=== PATIENT | male | born 1940 | race Caucasian/White ===

== ENCOUNTER 2020-12-25 07:43 | Inpatient (IN) ==
[2020-12-25] MEDS ORDERED: ONDANSETRON 4 MG/2 ML VIAL IV STA (08:06)
[2020-12-25] MEDS ORDERED: SODIUM CHLORIDE 0.9% 1,000 ML IV STA ×3 (08:06→10:19)
[2020-12-25] MEDS ORDERED: PANTOPRAZOLE 40 MG VIAL IV STA (08:06)
[2020-12-25] MEDS ORDERED: PIPERACILLIN/TAZOBACTAM 3,375 MG in SODIUM CHLORIDE 0.9% 100 ML IV STA (08:06)
[2020-12-25 08:26] LABS: Basophils % 0.3 % (0.0-0.8); Eosinophils # 0.2 10*3/uL (0.0-0.87); Eosinophils % 1.2 % (0.00-10.9); Hematocrit 35.3 VOL% (42.0-52.0); Hemoglobin 11.1 GM/DL (14.0-18.0); Immature Granulocytes % 0.6 %; Immature Granulocytes Absolute 0.08 #; Lymphocytes # 0.5 10*3/uL (1.4-4.0); Lymphocytes % 4.2 % (21.2-54.2); Mean Corpuscular HGB Conc 31.4 GM/DL (32-36); Mean Corpuscular Volume 87.8 FL (87-102); Mean Platelet Volume 10.3 FL (9.6-12.0); Monocytes % 7.8 % (1.7-12.7); Neutrophils % 85.9 % (38.7-73.9); Platelet Count 247 T/CUMM (130-400); Red Blood Count 4.02 MC/CUMM (3.8-5.5); Red Cell Distribution Width 15.4 % (9.3-17.3)
[2020-12-25 08:49] LABS: PT Patient Result > 178.9 SECS (9.8-11.9)
[2020-12-25 08:51] LABS: INR 24.8
[2020-12-25] MEDS ORDERED: SODIUM CHLORIDE 0.9% 1,000 ML IV PRN (08:52)
[2020-12-25 08:53] LABS: Hypochromasia 1+; Lymphocytes 5 % (20-55); Microcytosis 1+; Platelet Estimate Adequate; Segmented Neutrophils 86 % (50-85); Total Cells Counted 100
[2020-12-25 09:03] LABS: Albumin 2.8 G/DL (3.4-5.0); Bilirubin,Total 0.6 MG/DL (0.2-1.0); Calcium 8.7 MG/DL (8.5-10.1); Osmolality,Calculated 293.4 MOS/KG (273-304); Total Protein 6.2 G/DL (5.0-7.5)
[2020-12-25] MEDS ORDERED: ETOMIDATE 40 MG/20 ML VIAL IV ONE ×2 (09:10→11:38)
[2020-12-25] MEDS ORDERED: LIDOCAINE 2% 5 ML VIAL ONE ×2 (09:10→11:38)
[2020-12-25] MEDS ORDERED: propofoL 200 MG/20 ML VIAL IV ONE ×2 (09:10→11:38)
[2020-12-25] MEDS ORDERED: ROCURONIUM 50 MG/5 ML VIAL IV ONE ×2 (09:10→11:38)
[2020-12-25] MEDS ORDERED: fentaNYL 100 MCG/2 ML VIAL ONE ×2 (09:10→11:39)
[2020-12-25] MEDS ORDERED: PROTHROMBIN COMPLEX IV ONE (09:30)
[2020-12-25] MEDS ORDERED: NOREPINEPHRINE 4 MG/4 ML VIAL IV ONE (09:48)
[2020-12-25] MEDS: NOREPINEPHRINE 8 MG in SODIUM CHLORIDE 0.9% 242 ML IV PRN (10:00)
[2020-12-25 10:09] LABS: Bilirubin,Urine Small mg/dL (Negative); Blood, Urine Moderate mg/dL (Negative); Glucose,Urine (UA) Negative (Negative); Hyaline Casts,Urine 26 /LPF (0-3); Ketones,Urine 5 mg/dL (Negative); Mucus,Urine Occasional /LPF (Occasional); Nitrite,Urine Negative (Negative); Protein,Urine Negative; RBC,Urine 26 /HPF (0-4); Squamous Epithelial Cell,Urine Occasional /HPF (0-10); Urine Appearance Slightly Hazy (Clear); Urine Color Amber (Yellow); WBC,Urine 18 /HPF (0-6)
[2020-12-25] MEDS ORDERED: MORPHINE 4 MG/1 ML VIAL IV PRN (10:19)
[2020-12-25] MEDS ORDERED: ONDANSETRON 4 MG/2 ML VIAL IV PRN (10:19)
[2020-12-25] MEDS ORDERED: LACTATED RINGERS 1,000 ML IV SCH (10:30)
[2020-12-25 11:16] LABS: INR 1.6; PT Patient Result 16.6 SECS (9.8-11.9)
[2020-12-25] MEDS ORDERED: SEVOFLURANE 1 UNIT/15 MINUTE INH ONE ×2 (11:50→13:17)
[2020-12-25] MEDS ORDERED: DEXAMETHASONE 4 MG/1 ML VIAL ONE (11:50)
[2020-12-25] MEDS ORDERED: PHENYLEPHRINE 1 MG/10 ML SYRINGE IV ONE ×2 (12:08→13:01)
[2020-12-25] MEDS ORDERED: PHENYLEPHRINE 10 MG/1 ML VIAL IV ONE (12:35)
[2020-12-25] MEDS ORDERED: SODIUM CHLORIDE 0.9% 250 ML IV ONE (12:36)
[2020-12-25] MEDS ORDERED: ONDANSETRON 4 MG/2 ML VIAL ONE (13:01)
[2020-12-25 14:03] LABS: ABG Base Excess -8.8 MMOL/L (-2.5-2.5); ABG HCO3 17.4 MMOL/L (20-26); ABG Oxygen Saturation 99.5 % (95-100); ABG PCO2 52.3 MM HG (35-48); ABG TCO2 18.3 MMOL/L (23-27); Pt O2 Delivery Device Ventilator
[2020-12-25] MEDS ORDERED: DIGOXIN 0.5 MG/2 ML AMP IV ONE ×2 (14:04→14:35)
[2020-12-25 14:06] LABS: ABG PH 7.187 (7.35-7.45)
[2020-12-25] MEDS ORDERED: PIPERACILLIN/TAZOBACTAM 3,375 MG in SODIUM CHLORIDE 0.9% 100 ML IV SCH (14:30)
[2020-12-25] MEDS: MIDAZOLAM 100 MG in SODIUM CHLORIDE 0.9% 80 ML IV PRN (14:47)
[2020-12-25 15:02] LABS: Basophils # 0.1 10*3/uL (0.0-0.2); Basophils % 0.4 % (0.0-0.8); Eosinophils # 0.1 10*3/uL (0.0-0.87); Eosinophils % 0.6 % (0.00-10.9); Hematocrit 34.5 VOL% (42.0-52.0); Hemoglobin 10.9 GM/DL (14.0-18.0); Immature Granulocytes % 0.6 %; Immature Granulocytes Absolute 0.07 #; Lymphocytes # 0.6 10*3/uL (1.4-4.0); Lymphocytes % 5.5 % (21.2-54.2); Mean Corpuscular HGB Conc 31.6 GM/DL (32-36); Mean Corpuscular Volume 89.1 FL (87-102); Mean Platelet Volume 10.1 FL (9.6-12.0); Monocytes % 4.4 % (1.7-12.7); Neutrophils % 88.5 % (38.7-73.9); Platelet Count 215 T/CUMM (130-400); Red Blood Count 3.87 MC/CUMM (3.8-5.5); Red Cell Distribution Width 15.5 % (9.3-17.3); White Blood Count 11.4 T/CUMM (4-12)
[2020-12-25 15:14] LABS: Calcium 7.7 MG/DL (8.5-10.1); Osmolality,Calculated 299.5 MOS/KG (273-304); Potassium 4.6 MMOL/L (3.5-5.1)
[2020-12-25] MEDS: SODIUM BICARB INJ 100 MEQ in DEXTROSE 5% 1,000 ML IV SCH ×2 (16:01→23:34)
[2020-12-25] MEDS ORDERED: AMIODARONE INJ 150 MG in DEXTROSE 5% 100 ML IV ONE (16:21)
[2020-12-25] MEDS: MORPHINE 4 MG/1 ML VIAL IV PRN (16:39)
[2020-12-25] MEDS: AMIODARONE INJ 450 MG in DEXTROSE 5% 241 ML IV SCH (17:08)
[2020-12-25] MEDS: PIPERACILLIN/TAZOBACTAM 3,375 MG in SODIUM CHLORIDE 0.9% 100 ML IV SCH (20:48)
[2020-12-26 03:47] LABS: ABG Base Excess 2.6 MMOL/L (-2.5-2.5); ABG HCO3 26.7 MMOL/L (20-26); ABG Oxygen Saturation 99.2 % (95-100); ABG PCO2 37.4 MM HG (35-48); ABG PH 7.457 (7.35-7.45); ABG TCO2 23.9 MMOL/L (23-27)
[2020-12-26 05:03] LABS: Basophils % 0.2 % (0.0-0.8); Eosinophils % 0.1 % (0.00-10.9); Hematocrit 30.1 VOL% (42.0-52.0); Hemoglobin 9.9 GM/DL (14.0-18.0); Immature Granulocytes % 0.7 %; Immature Granulocytes Absolute 0.07 #; Lymphocytes # 0.3 10*3/uL (1.4-4.0); Lymphocytes % 2.6 % (21.2-54.2); Mean Corpuscular HGB Conc 32.9 GM/DL (32-36); Mean Corpuscular Volume 84.8 FL (87-102); Mean Platelet Volume 9.8 FL (9.6-12.0); Monocytes % 6.8 % (1.7-12.7); Neutrophils % 89.6 % (38.7-73.9); Platelet Count 196 T/CUMM (130-400); Red Blood Count 3.55 MC/CUMM (3.8-5.5); Red Cell Distribution Width 15.3 % (9.3-17.3); White Blood Count 9.9 T/CUMM (4-12)
[2020-12-26 05:20] LABS: Albumin 2.1 G/DL (3.4-5.0); Bilirubin,Total 0.5 MG/DL (0.2-1.0); Calcium 7.7 MG/DL (8.5-10.1); Osmolality,Calculated 294.8 MOS/KG (273-304); Potassium 3.9 MMOL/L (3.5-5.1); Total Protein 5.4 G/DL (5.0-7.5)
[2020-12-26 05:23] LABS: Hypochromasia Slight; Lymphocytes 4 % (20-55); Microcytosis Slight; Platelet Estimate Normal; Segmented Neutrophils 91 % (50-85); Total Cells Counted 100
[2020-12-26 05:24] LABS: PT Patient Result 51.8 SECS (9.8-11.9)
[2020-12-26 05:26] LABS: INR 5.3
[2020-12-26] MEDS: MORPHINE 4 MG/1 ML VIAL IV PRN ×3 (06:12→21:20)
[2020-12-26] MEDS: SODIUM BICARB INJ 100 MEQ in DEXTROSE 5% 1,000 ML IV SCH (07:39)
[2020-12-26] MEDS ORDERED: SODIUM CHLORIDE 0.9% 1,000 ML IV PRN (07:54)
[2020-12-26] MEDS: AMIODARONE INJ 450 MG in DEXTROSE 5% 241 ML IV SCH ×2 (08:30→20:30)
[2020-12-26] MEDS: PANTOPRAZOLE 40 MG VIAL IV SCH (08:31)
[2020-12-26] MEDS: PIPERACILLIN/TAZOBACTAM 3,375 MG in SODIUM CHLORIDE 0.9% 100 ML IV SCH ×2 (08:31→20:06)
[2020-12-26] MEDS ORDERED: GLUCAGON 1 MG VIAL IM PRN (08:58)
[2020-12-26] MEDS ORDERED: DEXTROSE 50% 25 GM/50 ML VIAL IV PRN (08:58)
[2020-12-26] MEDS ORDERED: PANTOPRAZOLE 40 MG TABLET PO SCH (09:00)
[2020-12-26] MEDS: SODIUM BICARB INJ 50 MEQ in DEXTROSE 5% NACL 0.45% 1,000 ML IV SCH ×2 (10:05→20:22)
[2020-12-26] MEDS ORDERED: AMIODARONE INJ 450 MG in DEXTROSE 5% 241 ML IV SCH (11:30)
[2020-12-26] MEDS: INSULIN LISPRO 100 UNIT/ML SUBCUT SCH ×3 (12:31→23:24)
[2020-12-26] MEDS: MIDAZOLAM 100 MG in SODIUM CHLORIDE 0.9% 80 ML IV PRN (15:32)
[2020-12-26] MEDS: POTASSIUM CHLORIDE RIDER 10 MEQ in PREMIX 1 EACH IV PRN ×2 (15:36→16:45)
[2020-12-27 03:24] LABS: ABG Base Excess 7.7 MMOL/L (-2.5-2.5); ABG HCO3 31.5 MMOL/L (20-26); ABG Oxygen Saturation 98.7 % (95-100); ABG PCO2 43.2 MM HG (35-48); ABG PH 7.478 (7.35-7.45); ABG TCO2 29.4 MMOL/L (23-27); Allen Test Positive; Pt O2 Delivery Device Ventilator
[2020-12-27 04:01] LABS: Eosinophils # 0.1 10*3/uL (0.0-0.87); Eosinophils % 1.3 % (0.00-10.9); Hematocrit 27.5 VOL% (42.0-52.0); Hemoglobin 8.7 GM/DL (14.0-18.0); Immature Granulocytes % 0.9 %; Immature Granulocytes Absolute 0.05 #; Lymphocytes # 0.3 10*3/uL (1.4-4.0); Lymphocytes % 5.4 % (21.2-54.2); Mean Corpuscular HGB Conc 31.6 GM/DL (32-36); Mean Corpuscular Volume 87.9 FL (87-102); Mean Platelet Volume 9.8 FL (9.6-12.0); Monocytes % 8.8 % (1.7-12.7); Neutrophils % 83.6 % (38.7-73.9); Red Blood Count 3.13 MC/CUMM (3.8-5.5); Red Cell Distribution Width 15.3 % (9.3-17.3)
[2020-12-27 04:02] LABS: Platelet Count 152 T/CUMM (130-400); White Blood Count 5.3 T/CUMM (4-12)
[2020-12-27 04:08] LABS: INR 4.5; PT Patient Result 44.7 SECS (9.8-11.9)
[2020-12-27 04:16] LABS: Bilirubin,Total 0.5 MG/DL (0.2-1.0); Calcium 7.7 MG/DL (8.5-10.1); Osmolality,Calculated 291.4 MOS/KG (273-304); Potassium 3.5 MMOL/L (3.5-5.1); Total Protein 5.4 G/DL (5.0-7.5)
[2020-12-27] MEDS: POTASSIUM CHLORIDE RIDER 20 MEQ in PREMIX 1 EACH IV PRN (05:11)
[2020-12-27] MEDS: INSULIN LISPRO 100 UNIT/ML SUBCUT SCH ×3 (06:07→18:06)
[2020-12-27] MEDS: SODIUM BICARB INJ 50 MEQ in DEXTROSE 5% NACL 0.45% 1,000 ML IV SCH ×3 (06:07→16:46)
[2020-12-27] MEDS: POTASSIUM CHLORIDE RIDER 10 MEQ in PREMIX 1 EACH IV PRN (06:08)
[2020-12-27] MEDS: MORPHINE 4 MG/1 ML VIAL IV PRN ×2 (06:15→12:11)
[2020-12-27] MEDS: PIPERACILLIN/TAZOBACTAM 3,375 MG in SODIUM CHLORIDE 0.9% 100 ML IV SCH ×2 (09:09→20:28)
[2020-12-27] MEDS: AMIODARONE INJ 450 MG in DEXTROSE 5% 241 ML IV SCH ×2 (09:09→12:10)
[2020-12-27] MEDS: PANTOPRAZOLE 40 MG VIAL IV SCH (09:10)
[2020-12-27] MEDS ORDERED: LIDOCAINE 2% 5 ML VIAL ONE (10:07)
[2020-12-27] MEDS ORDERED: ROCURONIUM 50 MG/5 ML VIAL IV ONE ×2 (10:07→10:59)
[2020-12-27] MEDS ORDERED: DEXAMETHASONE 4 MG/1 ML VIAL ONE (10:07)
[2020-12-27] MEDS ORDERED: MIDAZOLAM 2 MG/2 ML VIAL ONE ×2 (10:07)
[2020-12-27] MEDS ORDERED: ETOMIDATE 40 MG/20 ML VIAL IV ONE (10:07)
[2020-12-27] MEDS ORDERED: MINERAL OIL/PETROLATUM OPH OINT 3.5 GM TUBE ONE (10:33)
[2020-12-27] MEDS ORDERED: SEVOFLURANE 1 UNIT/15 MINUTE INH ONE ×2 (10:40→10:59)
[2020-12-27] MEDS ORDERED: PHENYLEPHRINE 1 MG/10 ML SYRINGE IV ONE ×2 (10:40→10:59)
[2020-12-27] MEDS ORDERED: ONDANSETRON 4 MG/2 ML VIAL ONE (10:43)
[2020-12-27] MEDS ORDERED: fentaNYL 100 MCG/2 ML VIAL ONE (10:57)
[2020-12-27] MEDS ORDERED: DILTIAZEM 50 MG/10 ML VIAL IV ONE (12:36)
[2020-12-27] MEDS ORDERED: DILTIAZEM 25 MG/5 ML VIAL IV ONE (12:38)
[2020-12-27] MEDS: DILTIAZEM INJ 100 MG in SODIUM CHLORIDE 0.9% 100 ML IV SCH ×2 (12:44→19:23)
[2020-12-27 15:46] LABS: INR 2.9
[2020-12-27 15:47] LABS: PT Patient Result 29.1 SECS (9.8-11.9)
[2020-12-27] MEDS: ACETAMINOPHEN 325 MG TABLET PO PRN (20:27)
[2020-12-28] MEDS: INSULIN LISPRO 100 UNIT/ML SUBCUT SCH ×5 (01:56→23:40)
[2020-12-28] MEDS: SODIUM BICARB INJ 50 MEQ in DEXTROSE 5% NACL 0.45% 1,000 ML IV SCH (04:22)
[2020-12-28 04:37] LABS: Allen Test Positive; Pt O2 Delivery Device Ventilator
[2020-12-28 04:38] LABS: ABG Base Excess 6.1 MMOL/L (-2.5-2.5); ABG HCO3 29.3 MMOL/L (20-26); ABG PCO2 37.4 MM HG (35-48); ABG PH 7.512 (7.35-7.45); ABG PO2 108.9 MM HG (80-95); ABG TCO2 30.5 MMOL/L (23-27)
[2020-12-28 04:41] LABS: ABG Oxygen Saturation 98.4 % (95-100)
[2020-12-28 05:04] LABS: Basophils % 0.2 % (0.0-0.8); Eosinophils % 0.8 % (0.00-10.9); Hematocrit 30.3 VOL% (42.0-52.0); Hemoglobin 9.4 GM/DL (14.0-18.0); Immature Granulocytes % 1.8 %; Lymphocytes # 0.5 10*3/uL (1.4-4.0); Lymphocytes % 4.5 % (21.2-54.2); Mean Corpuscular Volume 89.6 FL (87-102); Mean Platelet Volume 9.6 FL (9.6-12.0); Monocytes % 8.6 % (1.7-12.7); Neutrophils % 84.1 % (38.7-73.9); Platelet Count 187 T/CUMM (130-400); Red Blood Count 3.38 MC/CUMM (3.8-5.5); Red Cell Distribution Width 15.3 % (9.3-17.3); White Blood Count 10.8 T/CUMM (4-12)
[2020-12-28] MEDS: MORPHINE 4 MG/1 ML VIAL IV PRN ×2 (05:04→09:24)
[2020-12-28 05:05] LABS: Eosinophils # 0.1 10*3/uL (0.0-0.87); Immature Granulocytes Absolute 0.19 #
[2020-12-28 05:26] LABS: Band Neutrophils 1 % (0-10); Eosinophils 1 % (0-10); Hypochromasia 1+; Lymphocytes 1 % (20-55); PT Patient Result 55.5 SECS (9.8-11.9); Segmented Neutrophils 91 % (50-85); Total Cells Counted 100
[2020-12-28 05:27] LABS: Microcytosis 1+; Ovalocytes Slight
[2020-12-28 05:41] LABS: Calcium 7.9 MG/DL (8.5-10.1); Osmolality,Calculated 284.7 MOS/KG (273-304); Potassium 3.7 MMOL/L (3.5-5.1)
[2020-12-28 06:10] LABS: INR 5.7
[2020-12-28] MEDS: POTASSIUM CHLORIDE RIDER 20 MEQ in PREMIX 1 EACH IV PRN (06:31)
[2020-12-28] MEDS ORDERED: PHYTONADIONE 10 MG/1 ML AMP SUBCUT ONE (07:33)
[2020-12-28] MEDS ORDERED: POTASSIUM CHLORIDE RIDER 20 MEQ in PREMIX 1 EACH IV PRN (07:46)
[2020-12-28] MEDS ORDERED: POTASSIUM CHLORIDE RIDER 10 MEQ in PREMIX 1 EACH IV PRN (07:46)
[2020-12-28] MEDS: PANTOPRAZOLE 40 MG VIAL IV SCH (09:21)
[2020-12-28] MEDS: PIPERACILLIN/TAZOBACTAM 3,375 MG in SODIUM CHLORIDE 0.9% 100 ML IV SCH (09:23)
[2020-12-28] MEDS: NOREPINEPHRINE 8 MG in SODIUM CHLORIDE 0.9% 242 ML IV PRN (11:34)
[2020-12-28] MEDS: DILTIAZEM INJ 100 MG in SODIUM CHLORIDE 0.9% 100 ML IV SCH ×2 (11:39→12:13)
[2020-12-28] MEDS: DEXTROSE 5% NACL 0.9% 1,000 ML IV SCH ×2 (12:00→22:04)
[2020-12-28] MEDS: ERTAPENEM 1,000 MG in SODIUM CHLORIDE 0.9% 100 ML IV SCH (13:49)
[2020-12-28] MEDS: MIDAZOLAM 100 MG in SODIUM CHLORIDE 0.9% 80 ML IV PRN (21:03)
[2020-12-29 04:24] LABS: ABG Base Excess 5.5 MMOL/L (-2.5-2.5); ABG HCO3 29.6 MMOL/L (20-26); ABG PCO2 41.2 MM HG (35-48); ABG PH 7.474 (7.35-7.45); ABG PO2 109.1 MM HG (80-95); ABG TCO2 30.8 MMOL/L (23-27); Allen Test Positive; Pt O2 Delivery Device Ventilator
[2020-12-29 05:03] LABS: Basophils % 0.3 % (0.0-0.8); Eosinophils # 0.2 10*3/uL (0.0-0.87); Eosinophils % 1.6 % (0.00-10.9); Hematocrit 27.1 VOL% (42.0-52.0); Hemoglobin 8.4 GM/DL (14.0-18.0); Immature Granulocytes Absolute 0.09 #; Lymphocytes # 0.4 10*3/uL (1.4-4.0); Lymphocytes % 4.8 % (21.2-54.2); Mean Corpuscular Volume 90.3 FL (87-102); Mean Platelet Volume 9.5 FL (9.6-12.0); Monocytes % 8.1 % (1.7-12.7); Neutrophils % 84.2 % (38.7-73.9); Platelet Count 157 T/CUMM (130-400); Red Cell Distribution Width 15.1 % (9.3-17.3); White Blood Count 9.2 T/CUMM (4-12)
[2020-12-29 05:21] LABS: Osmolality,Calculated 287.4 MOS/KG (273-304); Potassium 3.4 MMOL/L (3.5-5.1)
[2020-12-29 05:28] LABS: INR 1.5; PT Patient Result 15.8 SECS (9.8-11.9)
[2020-12-29 05:29] LABS: Band Neutrophils 1 % (0-10); Eosinophils 4 % (0-10); Hypochromasia 1+; Lymphocytes 4 % (20-55); Microcytosis 1+; Segmented Neutrophils 81 % (50-85); Total Cells Counted 100
[2020-12-29 05:30] LABS: Giant Platelets Few; Ovalocytes Slight
[2020-12-29] MEDS: INSULIN LISPRO 100 UNIT/ML SUBCUT SCH ×3 (05:37→18:00)
[2020-12-29] MEDS: POTASSIUM CHLORIDE RIDER 20 MEQ in PREMIX 1 EACH IV PRN (05:45)
[2020-12-29] MEDS: DILTIAZEM INJ 100 MG in SODIUM CHLORIDE 0.9% 100 ML IV SCH ×2 (05:50→13:00)
[2020-12-29] MEDS: POTASSIUM CHLORIDE RIDER 10 MEQ in PREMIX 1 EACH IV PRN (07:40)
[2020-12-29] MEDS: DEXTROSE 5% NACL 0.9% 1,000 ML IV SCH ×2 (08:05→17:45)
[2020-12-29] MEDS: PANTOPRAZOLE 40 MG VIAL IV SCH (08:10)
[2020-12-29] MEDS: MORPHINE 4 MG/1 ML VIAL IV PRN ×3 (09:05→21:45)
[2020-12-29] MEDS: WARFARIN 5 MG TABLET PO SCH (10:10)
[2020-12-29] MEDS: ERTAPENEM 1,000 MG in SODIUM CHLORIDE 0.9% 100 ML IV SCH (11:50)
[2020-12-29] MEDS: DILTIAZEM 30 MG TABLET PO SCH ×2 (12:30→17:50)
[2020-12-29] MEDS: ROSUVASTATIN 10 MG TABLET PO SCH (21:09)
[2020-12-30] MEDS: INSULIN LISPRO 100 UNIT/ML SUBCUT SCH ×6 (00:48→23:47)
[2020-12-30] MEDS: DILTIAZEM 30 MG TABLET PO SCH ×5 (00:59→23:52)
[2020-12-30 03:43] LABS: ABG Base Excess 4.7 MMOL/L (-2.5-2.5); ABG HCO3 28.6 MMOL/L (20-26); ABG Oxygen Saturation 98.1 % (95-100); ABG PCO2 44.7 MM HG (35-48); ABG PH 7.428 (7.35-7.45); ABG TCO2 27.3 MMOL/L (23-27)
[2020-12-30] MEDS: DEXTROSE 5% NACL 0.9% 1,000 ML IV SCH ×2 (03:53→14:00)
[2020-12-30] MEDS: MORPHINE 4 MG/1 ML VIAL IV PRN ×3 (05:56→21:36)
[2020-12-30 06:00] LABS: Basophils % 0.2 % (0.0-0.8); Eosinophils # 0.2 10*3/uL (0.0-0.87); Eosinophils % 2.3 % (0.00-10.9); Hematocrit 27.7 VOL% (42.0-52.0); Hemoglobin 8.2 GM/DL (14.0-18.0); Immature Granulocytes % 1.1 %; Immature Granulocytes Absolute 0.09 #; Lymphocytes # 0.4 10*3/uL (1.4-4.0); Lymphocytes % 4.4 % (21.2-54.2); Mean Corpuscular HGB Conc 29.6 GM/DL (32-36); Mean Corpuscular Volume 94.2 FL (87-102); Mean Platelet Volume 9.6 FL (9.6-12.0); Platelet Count 149 T/CUMM (130-400); Red Blood Count 2.94 MC/CUMM (3.8-5.5); Red Cell Distribution Width 14.9 % (9.3-17.3); White Blood Count 8.2 T/CUMM (4-12)
[2020-12-30 06:12] LABS: INR 1.2
[2020-12-30 06:18] LABS: Calcium 8.1 MG/DL (8.5-10.1); Osmolality,Calculated 291.8 MOS/KG (273-304); Potassium 3.4 MMOL/L (3.5-5.1)
[2020-12-30 06:25] LABS: Band Neutrophils 1 % (0-10); Eosinophils 2 % (0-10); Hypochromasia 2+; Lymphocytes 3 % (20-55); Microcytosis 1+; Platelet Estimate Adequate; Segmented Neutrophils 89 % (50-85); Total Cells Counted 100
[2020-12-30] MEDS: POTASSIUM CHLORIDE RIDER 20 MEQ in PREMIX 1 EACH IV PRN (06:26)
[2020-12-30] MEDS ORDERED: MAGNESIUM SULF RIDER 2 GM in PREMIX 1 EACH IV ONE (08:00)
[2020-12-30] MEDS: PANTOPRAZOLE 40 MG VIAL IV SCH (08:15)
[2020-12-30] MEDS: POTASSIUM CHLORIDE RIDER 10 MEQ in PREMIX 1 EACH IV PRN (08:30)
[2020-12-30] MEDS: WARFARIN 7.5 MG TABLET PO SCH (08:40)
[2020-12-30] MEDS: ENOXAPARIN 100 MG/ML SYRINGE SUBCUT SCH ×2 (10:05→21:36)
[2020-12-30] MEDS: ERTAPENEM 1,000 MG in SODIUM CHLORIDE 0.9% 100 ML IV SCH (11:45)
[2020-12-30] MEDS ORDERED: INSULIN LISPRO 100 UNIT/ML SUBCUT SCH (19:30)
[2020-12-30] MEDS: ROSUVASTATIN 10 MG TABLET PO SCH (21:36)
[2020-12-31 03:10] LABS: ABG Base Excess 4.5 MMOL/L (-2.5-2.5); ABG HCO3 29.1 MMOL/L (20-26); ABG Oxygen Saturation 97.3 % (95-100); ABG PCO2 43.9 MM HG (35-48); ABG PO2 94.5 MM HG (80-95); ABG TCO2 30.5 MMOL/L (23-27)
[2020-12-31] MEDS: MORPHINE 4 MG/1 ML VIAL IV PRN ×3 (03:58→14:20)
[2020-12-31 04:56] LABS: Basophils % 0.4 % (0.0-0.8); Eosinophils # 0.2 10*3/uL (0.0-0.87); Eosinophils % 2.9 % (0.00-10.9); Hematocrit 26.2 VOL% (42.0-52.0); Immature Granulocytes % 1.2 %; Immature Granulocytes Absolute 0.09 #; Lymphocytes # 0.5 10*3/uL (1.4-4.0); Mean Corpuscular HGB Conc 30.5 GM/DL (32-36); Mean Corpuscular Volume 91.3 FL (87-102); Mean Platelet Volume 10.2 FL (9.6-12.0); Monocytes % 6.4 % (1.7-12.7); Neutrophils % 82.1 % (38.7-73.9); Platelet Count 153 T/CUMM (130-400); Red Blood Count 2.87 MC/CUMM (3.8-5.5); Red Cell Distribution Width 14.7 % (9.3-17.3); White Blood Count 7.5 T/CUMM (4-12)
[2020-12-31 05:14] LABS: Calcium 8.3 MG/DL (8.5-10.1); Osmolality,Calculated 283.3 MOS/KG (273-304); Potassium 3.6 MMOL/L (3.5-5.1)
[2020-12-31] MEDS: INSULIN LISPRO 100 UNIT/ML SUBCUT SCH ×3 (05:42→17:13)
[2020-12-31 05:49] LABS: INR 1.4; PT Patient Result 15.2 SECS (9.8-11.9)
[2020-12-31] MEDS: DILTIAZEM 30 MG TABLET PO SCH ×3 (05:52→18:10)
[2020-12-31] MEDS: ENOXAPARIN 100 MG/ML SYRINGE SUBCUT SCH ×2 (09:03→22:05)
[2020-12-31] MEDS: PANTOPRAZOLE 40 MG VIAL IV SCH (09:03)
[2020-12-31] MEDS: WARFARIN 5 MG TABLET PO SCH (09:04)
[2020-12-31] MEDS ORDERED: WARFARIN 2 MG TABLET PO ONE (09:06)
[2020-12-31] MEDS: ERTAPENEM 1,000 MG in SODIUM CHLORIDE 0.9% 100 ML IV SCH (12:06)
[2020-12-31] MEDS: ROSUVASTATIN 10 MG TABLET PO SCH (20:41)
[2021-01-01] MEDS: DILTIAZEM 30 MG TABLET PO SCH ×4 (00:22→18:10)
[2021-01-01] MEDS: ACETAMINOPHEN 325 MG TABLET PO PRN (00:29)
[2021-01-01] MEDS: INSULIN LISPRO 100 UNIT/ML SUBCUT SCH ×4 (00:29→19:19)
[2021-01-01 05:13] LABS: ABG Base Excess 4.3 MMOL/L (-2.5-2.5); ABG HCO3 28.2 MMOL/L (20-26); ABG Oxygen Saturation 96.5 % (95-100); ABG PCO2 45.7 MM HG (35-48); ABG PH 7.415 (7.35-7.45); ABG TCO2 27.2 MMOL/L (23-27)
[2021-01-01 05:32] LABS: Osmolality,Calculated 290.1 MOS/KG (273-304); Potassium 3.8 MMOL/L (3.5-5.1)
[2021-01-01 05:48] LABS: Basophils % 0.3 % (0.0-0.8); Eosinophils # 0.1 10*3/uL (0.0-0.87); Eosinophils % 2.3 % (0.00-10.9); Hematocrit 23.1 VOL% (42.0-52.0); Hemoglobin 6.8 GM/DL (14.0-18.0); Immature Granulocytes % 1.5 %; Immature Granulocytes Absolute 0.09 #; Lymphocytes # 0.5 10*3/uL (1.4-4.0); Lymphocytes % 7.6 % (21.2-54.2); Mean Corpuscular HGB Conc 29.4 GM/DL (32-36); Mean Corpuscular Volume 94.7 FL (87-102); Mean Platelet Volume 10.4 FL (9.6-12.0); Monocytes % 7.6 % (1.7-12.7); Neutrophils % 80.7 % (38.7-73.9); Platelet Count 159 T/CUMM (130-400); Red Blood Count 2.44 MC/CUMM (3.8-5.5); Red Cell Distribution Width 14.6 % (9.3-17.3); White Blood Count 6.2 T/CUMM (4-12)
[2021-01-01 07:11] LABS: PT Patient Result 20.4 SECS (9.8-11.9)
[2021-01-01 07:22] LABS: Basophils % 0.3 % (0.0-0.8); Eosinophils # 0.1 10*3/uL (0.0-0.87); Eosinophils % 2.2 % (0.00-10.9); Hematocrit 25.3 VOL% (42.0-52.0); Hemoglobin 7.8 GM/DL (14.0-18.0); Immature Granulocytes % 1.1 %; Immature Granulocytes Absolute 0.07 #; Lymphocytes # 0.5 10*3/uL (1.4-4.0); Lymphocytes % 7.4 % (21.2-54.2); Mean Corpuscular HGB Conc 30.8 GM/DL (32-36); Mean Corpuscular Volume 91.7 FL (87-102); Mean Platelet Volume 9.8 FL (9.6-12.0); Monocytes % 7.6 % (1.7-12.7); Neutrophils % 81.4 % (38.7-73.9); Platelet Count 158 T/CUMM (130-400); Red Blood Count 2.76 MC/CUMM (3.8-5.5); Red Cell Distribution Width 14.6 % (9.3-17.3); White Blood Count 6.5 T/CUMM (4-12)
[2021-01-01] MEDS: PANTOPRAZOLE 40 MG VIAL IV SCH (09:44)
[2021-01-01] MEDS: ENOXAPARIN 100 MG/ML SYRINGE SUBCUT SCH (09:45)
[2021-01-01] MEDS: WARFARIN 7.5 MG TABLET PO SCH (10:08)
[2021-01-01] MEDS: MORPHINE 4 MG/1 ML VIAL IV PRN (10:23)
[2021-01-01] MEDS: FUROSEMIDE 40 MG/4 ML VIAL IV SCH (10:47)
[2021-01-01] MEDS: ERTAPENEM 1,000 MG in SODIUM CHLORIDE 0.9% 100 ML IV SCH (11:54)
[2021-01-01] MEDS: MIDAZOLAM 100 MG in SODIUM CHLORIDE 0.9% 80 ML IV PRN (11:59)
[2021-01-01] MEDS ORDERED: HALOPERIDOL 5 MG/ML AMP IV PRN (14:04)
[2021-01-01] MEDS ORDERED: SODIUM CHLORIDE 0.9% 1,000 ML IV PRN (16:26)
[2021-01-01] MEDS: IPRATROPIUM 500 MCG/2.5 ML NEB RESP TX SCH (19:30)
[2021-01-01] MEDS: BUDESONIDE 0.5 MG/2 ML NEB RESP TX SCH (19:30)
[2021-01-01] MEDS: ROSUVASTATIN 10 MG TABLET PO SCH (21:14)
[2021-01-02] MEDS: DILTIAZEM 30 MG TABLET PO SCH ×4 (01:02→17:03)
[2021-01-02] MEDS: INSULIN LISPRO 100 UNIT/ML SUBCUT SCH ×4 (01:02→17:03)
[2021-01-02] MEDS: IPRATROPIUM 500 MCG/2.5 ML NEB RESP TX SCH ×4 (03:30→19:16)
[2021-01-02 04:29] LABS: ABG Base Excess 6.3 MMOL/L (-2.5-2.5); ABG HCO3 30.2 MMOL/L (20-26); ABG Oxygen Saturation 99.1 % (95-100); ABG PCO2 42.9 MM HG (35-48); ABG PH 7.463 (7.35-7.45); ABG TCO2 28.3 MMOL/L (23-27); Allen Test Positive; Pt O2 Delivery Device Ventilator
[2021-01-02 04:51] LABS: Hemoglobin 8.5 GM/DL (14.0-18.0); Immature Granulocytes % 1.3 %; Immature Granulocytes Absolute 0.09 #
[2021-01-02 05:00] LABS: Calcium 8.4 MG/DL (8.5-10.1); Osmolality,Calculated 285.5 MOS/KG (273-304); Potassium 3.6 MMOL/L (3.5-5.1)
[2021-01-02 05:03] LABS: INR 2.3
[2021-01-02 05:06] LABS: PT Patient Result 23.9 SECS (9.8-11.9)
[2021-01-02 05:08] LABS: Basophils % 0.1 % (0.0-0.8); Eosinophils # 0.1 10*3/uL (0.0-0.87); Eosinophils % 1.5 % (0.00-10.9); Hematocrit 26.8 VOL% (42.0-52.0); Lymphocytes # 0.4 10*3/uL (1.4-4.0); Lymphocytes % 6.2 % (21.2-54.2); Mean Corpuscular HGB Conc 31.7 GM/DL (32-36); Mean Platelet Volume 10.1 FL (9.6-12.0); Monocytes % 6.7 % (1.7-12.7); Neutrophils % 84.2 % (38.7-73.9); Platelet Count 163 T/CUMM (130-400); Red Blood Count 3.01 MC/CUMM (3.8-5.5); Red Cell Distribution Width 14.4 % (9.3-17.3); White Blood Count 7.1 T/CUMM (4-12)
[2021-01-02] MEDS: POTASSIUM CHLORIDE RIDER 20 MEQ in PREMIX 1 EACH IV PRN (06:31)
[2021-01-02] MEDS: BUDESONIDE 0.5 MG/2 ML NEB RESP TX SCH ×2 (07:16→19:16)
[2021-01-02] MEDS: FUROSEMIDE 40 MG/4 ML VIAL IV SCH ×2 (08:40→17:08)
[2021-01-02] MEDS: PANTOPRAZOLE 40 MG VIAL IV SCH (08:41)
[2021-01-02] MEDS: WARFARIN 5 MG TABLET PO SCH (08:41)
[2021-01-02] MEDS: MORPHINE 4 MG/1 ML VIAL IV PRN (09:51)
[2021-01-02] MEDS: DEXMEDETOMIDINE 400 MCG in SODIUM CHLORIDE 0.9% 96 ML IV PRN (11:04)
[2021-01-02] MEDS: ERTAPENEM 1,000 MG in SODIUM CHLORIDE 0.9% 100 ML IV SCH (12:53)
[2021-01-02] MEDS: ROSUVASTATIN 10 MG TABLET PO SCH (20:17)
[2021-01-03] MEDS: DILTIAZEM 30 MG TABLET PO SCH ×4 (00:16→17:55)
[2021-01-03] MEDS: DEXMEDETOMIDINE 400 MCG in SODIUM CHLORIDE 0.9% 96 ML IV PRN (00:17)
[2021-01-03] MEDS: INSULIN LISPRO 100 UNIT/ML SUBCUT SCH ×4 (00:38→17:30)
[2021-01-03] MEDS: IPRATROPIUM 500 MCG/2.5 ML NEB RESP TX SCH ×4 (01:15→19:28)
[2021-01-03 04:55] LABS: ABG Base Excess 8.5 MMOL/L (-2.5-2.5); ABG HCO3 32.2 MMOL/L (20-26); ABG Oxygen Saturation 98.2 % (95-100); ABG PH 7.482 (7.35-7.45); ABG TCO2 29.6 MMOL/L (23-27)
[2021-01-03 05:21] LABS: Basophils % 0.3 % (0.0-0.8); Eosinophils # 0.1 10*3/uL (0.0-0.87); Eosinophils % 1.5 % (0.00-10.9); Hematocrit 30.4 VOL% (42.0-52.0); Hemoglobin 9.2 GM/DL (14.0-18.0); Immature Granulocytes % 1.5 %; Immature Granulocytes Absolute 0.11 #; Lymphocytes # 0.5 10*3/uL (1.4-4.0); Lymphocytes % 6.7 % (21.2-54.2); Mean Corpuscular HGB Conc 30.3 GM/DL (32-36); Mean Corpuscular Volume 91.6 FL (87-102); Mean Platelet Volume 9.9 FL (9.6-12.0); Monocytes % 7.6 % (1.7-12.7); Neutrophils % 82.4 % (38.7-73.9); Platelet Count 207 T/CUMM (130-400); Red Blood Count 3.32 MC/CUMM (3.8-5.5); White Blood Count 7.2 T/CUMM (4-12)
[2021-01-03 05:37] LABS: INR 2.4
[2021-01-03 05:42] LABS: PT Patient Result 25.1 SECS (9.8-11.9)
[2021-01-03 05:46] LABS: Calcium 8.6 MG/DL (8.5-10.1); Osmolality,Calculated 281.8 MOS/KG (273-304); Potassium 3.7 MMOL/L (3.5-5.1)
[2021-01-03] MEDS: MORPHINE 4 MG/1 ML VIAL IV PRN (06:30)
[2021-01-03] MEDS: BUDESONIDE 0.5 MG/2 ML NEB RESP TX SCH ×2 (07:03→19:28)
[2021-01-03] MEDS: PANTOPRAZOLE 40 MG VIAL IV SCH (08:35)
[2021-01-03] MEDS: FUROSEMIDE 40 MG/4 ML VIAL IV SCH ×2 (08:35→16:38)
[2021-01-03] MEDS ORDERED: MAGNESIUM SULF RIDER 4 GM in PREMIX 1 EACH IV ONE (08:46)
[2021-01-03] MEDS ORDERED: ALPRAZolam 0.25 MG TABLET PO PRN (09:58)
[2021-01-03] MEDS: ALPRAZolam 0.25 MG TABLET PO SCH ×2 (10:30→17:53)
[2021-01-03] MEDS: AMIKACIN IV SCH (12:20)
[2021-01-03] MEDS: SODIUM CHLORIDE 0.9% IV SCH (12:20)
[2021-01-03 12:30] LABS: ABG Base Excess 8.9 MMOL/L (-2.5-2.5); ABG HCO3 32.7 MMOL/L (20-26); ABG PCO2 47.6 MM HG (35-48); ABG PH 7.461 (7.35-7.45); ABG PO2 79.5 MM HG (80-95); ABG TCO2 30.9 MMOL/L (23-27)
[2021-01-03] MEDS: ERTAPENEM 1,000 MG in SODIUM CHLORIDE 0.9% 100 ML IV SCH (12:45)
[2021-01-03] MEDS ORDERED: METOPROLOL TARTRATE 50 MG TABLET PO SCH (17:06)
[2021-01-03] MEDS: WARFARIN 5 MG TABLET PO SCH (17:55)
[2021-01-03] MEDS ORDERED: METOPROLOL TARTRATE 5 MG/5 ML VIAL IV ONE (18:00)
[2021-01-03] MEDS: ROSUVASTATIN 10 MG TABLET PO SCH (21:16)
[2021-01-03] MEDS: METOPROLOL TARTRATE 50 MG TABLET PO SCH (21:17)
[2021-01-04] MEDS: INSULIN LISPRO 100 UNIT/ML SUBCUT SCH ×4 (00:54→18:12)
[2021-01-04] MEDS: DILTIAZEM 30 MG TABLET PO SCH ×4 (00:54→17:13)
[2021-01-04] MEDS: SODIUM CHLORIDE 0.9% IV SCH ×2 (00:56→12:33)
[2021-01-04] MEDS: AMIKACIN IV SCH ×2 (00:56→12:33)
[2021-01-04] MEDS: IPRATROPIUM 500 MCG/2.5 ML NEB RESP TX SCH ×4 (02:21→19:41)
[2021-01-04] MEDS: ALPRAZolam 0.25 MG TABLET PO SCH ×3 (03:45→18:18)
[2021-01-04 04:41] LABS: ABG Base Excess 10.7 MMOL/L (-2.5-2.5); ABG HCO3 34.3 MMOL/L (20-26); ABG Oxygen Saturation 91.8 % (95-100); ABG PCO2 47.8 MM HG (35-48); ABG PH 7.481 (7.35-7.45); ABG PO2 62.3 MM HG (80-95); ABG TCO2 32.4 MMOL/L (23-27)
[2021-01-04 05:19] LABS: Basophils % 0.2 % (0.0-0.8); Eosinophils # 0.1 10*3/uL (0.0-0.87); Eosinophils % 0.7 % (0.00-10.9); Hematocrit 30.6 VOL% (42.0-52.0); Hemoglobin 9.4 GM/DL (14.0-18.0); Immature Granulocytes % 1.1 %; Immature Granulocytes Absolute 0.09 #; Lymphocytes # 0.4 10*3/uL (1.4-4.0); Lymphocytes % 4.6 % (21.2-54.2); Mean Corpuscular HGB Conc 30.7 GM/DL (32-36); Mean Corpuscular Volume 90.3 FL (87-102); Mean Platelet Volume 9.9 FL (9.6-12.0); Monocytes % 7.8 % (1.7-12.7); Neutrophils % 85.6 % (38.7-73.9); Platelet Count 266 T/CUMM (130-400); Red Blood Count 3.39 MC/CUMM (3.8-5.5); Red Cell Distribution Width 14.3 % (9.3-17.3); White Blood Count 8.3 T/CUMM (4-12)
[2021-01-04 05:36] LABS: Calcium 8.5 MG/DL (8.5-10.1); Osmolality,Calculated 278.8 MOS/KG (273-304); Potassium 3.9 MMOL/L (3.5-5.1)
[2021-01-04 05:37] LABS: Eosinophils 1 % (0-10); Hypochromasia 1+; Lymphocytes 2 % (20-55); Microcytosis 1+; Platelet Estimate Adequate; Segmented Neutrophils 94 % (50-85); Total Cells Counted 100
[2021-01-04] MEDS: BUDESONIDE 0.5 MG/2 ML NEB RESP TX SCH ×2 (06:58→19:41)
[2021-01-04] MEDS: PANTOPRAZOLE 40 MG VIAL IV SCH (08:54)
[2021-01-04] MEDS: METOPROLOL TARTRATE 50 MG TABLET PO SCH ×2 (08:55→21:03)
[2021-01-04] MEDS: FUROSEMIDE 40 MG/4 ML VIAL IV SCH ×2 (08:55→17:12)
[2021-01-04 10:52] LABS: PT Patient Result 21.2 SECS (9.8-11.9)
[2021-01-04] MEDS: NYSTATIN 500,000 UNIT/5 ML UDCUP SWISH/SWAL SCH ×3 (12:32→21:03)
[2021-01-04] MEDS: ERTAPENEM 1,000 MG in SODIUM CHLORIDE 0.9% 100 ML IV SCH (13:00)
[2021-01-04] MEDS: WARFARIN 7.5 MG TABLET PO SCH (18:18)
[2021-01-04] MEDS: ROSUVASTATIN 10 MG TABLET PO SCH (21:03)
[2021-01-05] MEDS: INSULIN LISPRO 100 UNIT/ML SUBCUT SCH ×4 (00:15→17:10)
[2021-01-05] MEDS: DILTIAZEM 30 MG TABLET PO SCH ×4 (00:18→17:09)
[2021-01-05] MEDS: SODIUM CHLORIDE 0.9% IV SCH ×2 (00:19→11:47)
[2021-01-05] MEDS: AMIKACIN IV SCH ×2 (00:19→11:47)
[2021-01-05] MEDS: IPRATROPIUM 500 MCG/2.5 ML NEB RESP TX SCH ×4 (01:09→19:21)
[2021-01-05 04:35] LABS: ABG Base Excess 10.8 MMOL/L (-2.5-2.5); ABG HCO3 34.6 MMOL/L (20-26); ABG Oxygen Saturation 97.5 % (95-100); ABG PCO2 51.6 MM HG (35-48); ABG PH 7.458 (7.35-7.45); ABG TCO2 32.7 MMOL/L (23-27)
[2021-01-05 05:06] LABS: Basophils % 0.6 % (0.0-0.8); Eosinophils # 0.2 10*3/uL (0.0-0.87); Eosinophils % 2.4 % (0.00-10.9); Hematocrit 29.3 VOL% (42.0-52.0); Hemoglobin 9.1 GM/DL (14.0-18.0); Immature Granulocytes % 1.2 %; Immature Granulocytes Absolute 0.08 #; Lymphocytes # 0.5 10*3/uL (1.4-4.0); Lymphocytes % 6.9 % (21.2-54.2); Mean Corpuscular HGB Conc 31.1 GM/DL (32-36); Mean Corpuscular Volume 89.6 FL (87-102); Mean Platelet Volume 9.9 FL (9.6-12.0); Monocytes % 10.6 % (1.7-12.7); Neutrophils % 78.3 % (38.7-73.9); Platelet Count 277 T/CUMM (130-400); Red Blood Count 3.27 MC/CUMM (3.8-5.5); Red Cell Distribution Width 14.3 % (9.3-17.3); White Blood Count 6.7 T/CUMM (4-12)
[2021-01-05 05:19] LABS: PT Patient Result 20.5 SECS (9.8-11.9)
[2021-01-05 05:26] LABS: Calcium 8.7 MG/DL (8.5-10.1); Osmolality,Calculated 280.8 MOS/KG (273-304); Potassium 3.9 MMOL/L (3.5-5.1)
[2021-01-05] MEDS: ALPRAZolam 0.25 MG TABLET PO SCH ×4 (05:50→17:48)
[2021-01-05] MEDS: BUDESONIDE 0.5 MG/2 ML NEB RESP TX SCH ×2 (07:19→19:21)
[2021-01-05] MEDS: PANTOPRAZOLE 40 MG VIAL IV SCH (08:44)
[2021-01-05] MEDS: FUROSEMIDE 40 MG/4 ML VIAL IV SCH ×2 (08:45→17:08)
[2021-01-05] MEDS: METOPROLOL TARTRATE 50 MG TABLET PO SCH ×2 (08:45→20:40)
[2021-01-05] MEDS: NYSTATIN 500,000 UNIT/5 ML UDCUP SWISH/SWAL SCH ×4 (08:45→20:40)
[2021-01-05] MEDS: ERTAPENEM 1,000 MG in SODIUM CHLORIDE 0.9% 100 ML IV SCH (11:48)
[2021-01-05] MEDS: WARFARIN 5 MG TABLET PO SCH (17:10)
[2021-01-05] MEDS: ROSUVASTATIN 10 MG TABLET PO SCH (20:40)
[2021-01-06] MEDS: IPRATROPIUM 500 MCG/2.5 ML NEB RESP TX SCH ×4 (00:59→19:34)
[2021-01-06] MEDS: SODIUM CHLORIDE 0.9% IV SCH ×2 (01:00→11:27)
[2021-01-06] MEDS: AMIKACIN IV SCH ×2 (01:00→11:27)
[2021-01-06] MEDS: DILTIAZEM 30 MG TABLET PO SCH ×4 (01:00→17:18)
[2021-01-06] MEDS: INSULIN LISPRO 100 UNIT/ML SUBCUT SCH ×4 (01:00→17:19)
[2021-01-06] MEDS: ALPRAZolam 0.25 MG TABLET PO SCH (03:32)
[2021-01-06 04:48] LABS: ABG Base Excess 11.3 MMOL/L (-2.5-2.5); ABG HCO3 34.9 MMOL/L (20-26); ABG Oxygen Saturation 92.1 % (95-100); ABG PCO2 49.7 MM HG (35-48); ABG PH 7.474 (7.35-7.45); ABG PO2 64.4 MM HG (80-95); ABG TCO2 33.4 MMOL/L (23-27); Allen Test Positive
[2021-01-06 05:33] LABS: Basophils % 0.6 % (0.0-0.8); Eosinophils # 0.2 10*3/uL (0.0-0.87); Eosinophils % 2.9 % (0.00-10.9); Hematocrit 30.6 VOL% (42.0-52.0); Hemoglobin 9.3 GM/DL (14.0-18.0); Immature Granulocytes % 1.2 %; Immature Granulocytes Absolute 0.08 #; Lymphocytes # 0.5 10*3/uL (1.4-4.0); Lymphocytes % 6.8 % (21.2-54.2); Mean Corpuscular HGB Conc 30.4 GM/DL (32-36); Mean Corpuscular Volume 92.4 FL (87-102); Monocytes % 10.8 % (1.7-12.7); Neutrophils % 77.7 % (38.7-73.9); Platelet Count 332 T/CUMM (130-400); Red Blood Count 3.31 MC/CUMM (3.8-5.5); Red Cell Distribution Width 14.4 % (9.3-17.3)
[2021-01-06 05:36] LABS: INR 1.8; PT Patient Result 18.5 SECS (9.8-11.9)
[2021-01-06 05:57] LABS: Calcium 8.7 MG/DL (8.5-10.1); Osmolality,Calculated 285.7 MOS/KG (273-304); Potassium 3.9 MMOL/L (3.5-5.1)
[2021-01-06] MEDS: BUDESONIDE 0.5 MG/2 ML NEB RESP TX SCH ×2 (07:42→19:34)
[2021-01-06] MEDS: PANTOPRAZOLE 40 MG VIAL IV SCH (08:23)
[2021-01-06] MEDS: NYSTATIN 500,000 UNIT/5 ML UDCUP SWISH/SWAL SCH ×4 (08:23→21:25)
[2021-01-06] MEDS: FUROSEMIDE 40 MG/4 ML VIAL IV SCH (08:23)
[2021-01-06] MEDS: METOPROLOL TARTRATE 50 MG TABLET PO SCH ×2 (08:23→21:25)
[2021-01-06] MEDS: ERTAPENEM 1,000 MG in SODIUM CHLORIDE 0.9% 100 ML IV SCH (11:28)
[2021-01-06] MEDS: MONTELUKAST 10 MG TABLET PO SCH (11:30)
[2021-01-06] MEDS: DORNASE ALFA 2.5 MG/2.5 ML VIAL RESP TX SCH ×2 (11:59→19:34)
[2021-01-06] MEDS: FUROSEMIDE 20 MG/2 ML VIAL IV SCH (17:15)
[2021-01-06] MEDS: WARFARIN 7.5 MG TABLET PO SCH (17:19)
[2021-01-06] MEDS: ROSUVASTATIN 10 MG TABLET PO SCH (21:25)
[2021-01-07] MEDS: AMIKACIN IV SCH ×2 (01:05→12:12)
[2021-01-07] MEDS: SODIUM CHLORIDE 0.9% IV SCH ×2 (01:05→12:12)
[2021-01-07] MEDS: IPRATROPIUM 500 MCG/2.5 ML NEB RESP TX SCH ×4 (01:05→19:26)
[2021-01-07] MEDS: DILTIAZEM 30 MG TABLET PO SCH ×4 (01:05→17:28)
[2021-01-07 04:15] LABS: ABG Base Excess 10.4 MMOL/L (-2.5-2.5); ABG Oxygen Saturation 89.9 % (95-100); ABG PCO2 48.4 MM HG (35-48); ABG PH 7.475 (7.35-7.45); Allen Test Positive; Pt O2 Delivery Device Simple Mask
[2021-01-07 05:06] LABS: Basophils % 0.4 % (0.0-0.8); Eosinophils % 0.1 % (0.00-10.9); Hematocrit 32.6 VOL% (42.0-52.0); Hemoglobin 9.9 GM/DL (14.0-18.0); Immature Granulocytes % 0.9 %; Immature Granulocytes Absolute 0.09 #; Lymphocytes # 0.6 10*3/uL (1.4-4.0); Lymphocytes % 5.6 % (21.2-54.2); Mean Corpuscular HGB Conc 30.4 GM/DL (32-36); Mean Corpuscular Volume 91.6 FL (87-102); Mean Platelet Volume 9.5 FL (9.6-12.0); Monocytes % 9.4 % (1.7-12.7); Neutrophils % 83.6 % (38.7-73.9); Platelet Count 365 T/CUMM (130-400); Red Blood Count 3.56 MC/CUMM (3.8-5.5); Red Cell Distribution Width 14.5 % (9.3-17.3); White Blood Count 10.5 T/CUMM (4-12)
[2021-01-07 05:17] LABS: Calcium 9.1 MG/DL (8.5-10.1); Osmolality,Calculated 283.8 MOS/KG (273-304); Potassium 3.8 MMOL/L (3.5-5.1)
[2021-01-07] MEDS: INSULIN LISPRO 100 UNIT/ML SUBCUT SCH ×2 (05:32)
[2021-01-07 05:45] LABS: INR 1.5; PT Patient Result 15.5 SECS (9.8-11.9)
[2021-01-07] MEDS ORDERED: INSULIN LISPRO 100 UNIT/ML SUBCUT SCH (07:30)
[2021-01-07] MEDS: FUROSEMIDE 20 MG/2 ML VIAL IV SCH ×2 (07:36→17:28)
[2021-01-07] MEDS: POTASSIUM CHLORIDE RIDER 20 MEQ in PREMIX 1 EACH IV PRN (07:39)
[2021-01-07] MEDS: BUDESONIDE 0.5 MG/2 ML NEB RESP TX SCH ×2 (07:52→19:26)
[2021-01-07] MEDS: DORNASE ALFA 2.5 MG/2.5 ML VIAL RESP TX SCH ×2 (08:02→19:39)
[2021-01-07] MEDS: MONTELUKAST 10 MG TABLET PO SCH (08:35)
[2021-01-07] MEDS: PANTOPRAZOLE 40 MG VIAL IV SCH (08:35)
[2021-01-07] MEDS: NYSTATIN 500,000 UNIT/5 ML UDCUP SWISH/SWAL SCH ×4 (08:35→20:33)
[2021-01-07] MEDS: METOPROLOL TARTRATE 50 MG TABLET PO SCH ×2 (08:35→20:32)
[2021-01-07] MEDS: ERTAPENEM 1,000 MG in SODIUM CHLORIDE 0.9% 100 ML IV SCH (12:12)
[2021-01-07] MEDS: WARFARIN 5 MG TABLET PO SCH (17:28)
[2021-01-07] MEDS: DOCUSATE SODIUM 100 MG CAPSULE PO SCH (20:32)
[2021-01-07] MEDS: ROSUVASTATIN 10 MG TABLET PO SCH (20:32)
[2021-01-08] MEDS: SODIUM CHLORIDE 0.9% IV SCH (00:10)
[2021-01-08] MEDS: AMIKACIN IV SCH (00:10)
[2021-01-08] MEDS: IPRATROPIUM 500 MCG/2.5 ML NEB RESP TX SCH ×4 (00:55→19:32)
[2021-01-08] MEDS: DILTIAZEM 30 MG TABLET PO SCH ×4 (01:00→17:01)
[2021-01-08 03:38] LABS: Basophils % 0.5 % (0.0-0.8); Eosinophils # 0.2 10*3/uL (0.0-0.87); Eosinophils % 2.1 % (0.00-10.9); Hematocrit 29.8 VOL% (42.0-52.0); Hemoglobin 9.1 GM/DL (14.0-18.0); Immature Granulocytes % 0.9 %; Immature Granulocytes Absolute 0.07 #; Lymphocytes # 0.7 10*3/uL (1.4-4.0); Lymphocytes % 8.8 % (21.2-54.2); Mean Corpuscular HGB Conc 30.5 GM/DL (32-36); Mean Corpuscular Volume 91.7 FL (87-102); Mean Platelet Volume 9.4 FL (9.6-12.0); Monocytes % 11.4 % (1.7-12.7); Neutrophils % 76.3 % (38.7-73.9); Platelet Count 347 T/CUMM (130-400); Red Blood Count 3.25 MC/CUMM (3.8-5.5); Red Cell Distribution Width 14.6 % (9.3-17.3); White Blood Count 7.6 T/CUMM (4-12)
[2021-01-08 04:01] LABS: Osmolality,Calculated 286.7 MOS/KG (273-304); Potassium 3.8 MMOL/L (3.5-5.1)
[2021-01-08] MEDS: POTASSIUM CHLORIDE RIDER 20 MEQ in PREMIX 1 EACH IV PRN (06:14)
[2021-01-08] MEDS: BUDESONIDE 0.5 MG/2 ML NEB RESP TX SCH ×2 (08:03→19:32)
[2021-01-08] MEDS: DORNASE ALFA 2.5 MG/2.5 ML VIAL RESP TX SCH ×2 (08:03→19:43)
[2021-01-08] MEDS: FUROSEMIDE 20 MG/2 ML VIAL IV SCH ×2 (08:28→17:05)
[2021-01-08] MEDS: NYSTATIN 500,000 UNIT/5 ML UDCUP SWISH/SWAL SCH ×5 (08:32→22:00)
[2021-01-08] MEDS: DOCUSATE SODIUM 100 MG CAPSULE PO SCH ×3 (08:32→21:59)
[2021-01-08] MEDS: PANTOPRAZOLE 40 MG VIAL IV SCH (08:32)
[2021-01-08] MEDS: METOPROLOL TARTRATE 50 MG TABLET PO SCH ×3 (08:32→22:00)
[2021-01-08] MEDS: MONTELUKAST 10 MG TABLET PO SCH (08:32)
[2021-01-08] MEDS: ERTAPENEM 1,000 MG in SODIUM CHLORIDE 0.9% 100 ML IV SCH (12:24)
[2021-01-08] MEDS: WARFARIN 7.5 MG TABLET PO SCH (17:01)
[2021-01-08] MEDS: ROSUVASTATIN 10 MG TABLET PO SCH ×2 (19:26→22:00)
[2021-01-09] MEDS: DILTIAZEM 30 MG TABLET PO SCH ×2 (00:05→06:15)
[2021-01-09] MEDS: IPRATROPIUM 500 MCG/2.5 ML NEB RESP TX SCH ×4 (00:38→19:13)
[2021-01-09 04:40] LABS: Basophils # 0.1 10*3/uL (0.0-0.2); Basophils % 0.7 % (0.0-0.8); Eosinophils # 0.2 10*3/uL (0.0-0.87); Eosinophils % 2.7 % (0.00-10.9); Hematocrit 31.9 VOL% (42.0-52.0); Hemoglobin 9.7 GM/DL (14.0-18.0); Immature Granulocytes % 1.6 %; Immature Granulocytes Absolute 0.12 #; Lymphocytes # 0.7 10*3/uL (1.4-4.0); Lymphocytes % 8.8 % (21.2-54.2); Mean Corpuscular HGB Conc 30.4 GM/DL (32-36); Mean Corpuscular Volume 90.9 FL (87-102); Mean Platelet Volume 9.6 FL (9.6-12.0); Monocytes % 10.9 % (1.7-12.7); Neutrophils % 75.3 % (38.7-73.9); Platelet Count 413 T/CUMM (130-400); Red Blood Count 3.51 MC/CUMM (3.8-5.5); Red Cell Distribution Width 14.6 % (9.3-17.3); White Blood Count 7.5 T/CUMM (4-12)
[2021-01-09 04:49] LABS: INR 2.1; PT Patient Result 21.7 SECS (9.8-11.9)
[2021-01-09 04:59] LABS: Osmolality,Calculated 286.5 MOS/KG (273-304); Potassium 3.8 MMOL/L (3.5-5.1)
[2021-01-09] MEDS: BUDESONIDE 0.5 MG/2 ML NEB RESP TX SCH ×2 (08:14→19:13)
[2021-01-09] MEDS: DORNASE ALFA 2.5 MG/2.5 ML VIAL RESP TX SCH ×2 (08:40→19:13)
[2021-01-09] MEDS: PANTOPRAZOLE 40 MG TABLET PO SCH (09:44)
[2021-01-09] MEDS: MONTELUKAST 10 MG TABLET PO SCH (09:44)
[2021-01-09] MEDS: METOPROLOL TARTRATE 50 MG TABLET PO SCH ×2 (09:44→20:57)
[2021-01-09] MEDS: DOCUSATE SODIUM 100 MG CAPSULE PO SCH ×2 (09:44→20:57)
[2021-01-09] MEDS: NYSTATIN 500,000 UNIT/5 ML UDCUP SWISH/SWAL SCH ×4 (09:45→20:57)
[2021-01-09] MEDS: FUROSEMIDE 20 MG/2 ML VIAL IV SCH (09:45)
[2021-01-09] MEDS: DILTIAZEM CD 120 MG CAPSULE PO SCH (12:13)
[2021-01-09] MEDS: TAMSULOSIN 0.4 MG CAPSULE PO SCH (12:14)
[2021-01-09] MEDS: ERTAPENEM 1,000 MG in SODIUM CHLORIDE 0.9% 100 ML IV SCH (14:25)
[2021-01-09] MEDS: FUROSEMIDE 40 MG TABLET PO SCH (16:05)
[2021-01-09] MEDS: WARFARIN 5 MG TABLET PO SCH (18:41)
[2021-01-09] MEDS: ROSUVASTATIN 10 MG TABLET PO SCH (20:57)
[2021-01-10] MEDS: IPRATROPIUM 500 MCG/2.5 ML NEB RESP TX SCH ×4 (01:25→19:36)
[2021-01-10 06:02] LABS: Basophils # 0.1 10*3/uL (0.0-0.2); Basophils % 0.7 % (0.0-0.8); Eosinophils # 0.3 10*3/uL (0.0-0.87); Eosinophils % 3.6 % (0.00-10.9); Hematocrit 31.7 VOL% (42.0-52.0); Hemoglobin 9.7 GM/DL (14.0-18.0); Immature Granulocytes % 1.2 %; Immature Granulocytes Absolute 0.08 #; Lymphocytes # 0.6 10*3/uL (1.4-4.0); Lymphocytes % 9.2 % (21.2-54.2); Mean Corpuscular HGB Conc 30.6 GM/DL (32-36); Mean Corpuscular Volume 90.8 FL (87-102); Neutrophils % 74.3 % (38.7-73.9); Platelet Count 405 T/CUMM (130-400); Red Blood Count 3.49 MC/CUMM (3.8-5.5); Red Cell Distribution Width 14.6 % (9.3-17.3); White Blood Count 6.9 T/CUMM (4-12)
[2021-01-10 06:18] LABS: PT Patient Result 21.1 SECS (9.8-11.9)
[2021-01-10 06:27] LABS: Calcium 9.3 MG/DL (8.5-10.1); Osmolality,Calculated 291.3 MOS/KG (273-304); Potassium 3.8 MMOL/L (3.5-5.1)
[2021-01-10] MEDS: BUDESONIDE 0.5 MG/2 ML NEB RESP TX SCH ×2 (07:15→19:36)
[2021-01-10] MEDS: DORNASE ALFA 2.5 MG/2.5 ML VIAL RESP TX SCH ×2 (07:26→19:42)
[2021-01-10] MEDS: NYSTATIN 500,000 UNIT/5 ML UDCUP SWISH/SWAL SCH ×4 (09:00→22:53)
[2021-01-10] MEDS: DOCUSATE SODIUM 100 MG CAPSULE PO SCH ×2 (09:01→22:53)
[2021-01-10] MEDS: PANTOPRAZOLE 40 MG TABLET PO SCH (09:01)
[2021-01-10] MEDS: DILTIAZEM CD 120 MG CAPSULE PO SCH (09:01)
[2021-01-10] MEDS: FUROSEMIDE 40 MG TABLET PO SCH (09:01)
[2021-01-10] MEDS: MONTELUKAST 10 MG TABLET PO SCH (09:01)
[2021-01-10] MEDS: TAMSULOSIN 0.4 MG CAPSULE PO SCH (09:01)
[2021-01-10] MEDS: METOPROLOL TARTRATE 50 MG TABLET PO SCH ×2 (09:02→22:53)
[2021-01-10] MEDS: ERTAPENEM 1,000 MG in SODIUM CHLORIDE 0.9% 100 ML IV SCH (12:09)
[2021-01-10] MEDS: WARFARIN 5 MG TABLET PO SCH (17:01)
[2021-01-10] MEDS: ROSUVASTATIN 10 MG TABLET PO SCH (22:53)
[2021-01-11] MEDS: IPRATROPIUM 500 MCG/2.5 ML NEB RESP TX SCH ×3 (00:24→13:29)
[2021-01-11 05:40] LABS: Basophils # 0.1 10*3/uL (0.0-0.2); Basophils % 0.7 % (0.0-0.8); Eosinophils # 0.1 10*3/uL (0.0-0.87); Eosinophils % 1.9 % (0.00-10.9); Hemoglobin 9.2 GM/DL (14.0-18.0); Immature Granulocytes % 0.7 %; Immature Granulocytes Absolute 0.05 #; Lymphocytes # 0.6 10*3/uL (1.4-4.0); Lymphocytes % 9.2 % (21.2-54.2); Mean Corpuscular HGB Conc 30.7 GM/DL (32-36); Mean Corpuscular Volume 90.6 FL (87-102); Mean Platelet Volume 9.6 FL (9.6-12.0); Monocytes % 9.3 % (1.7-12.7); Neutrophils % 78.2 % (38.7-73.9); Platelet Count 373 T/CUMM (130-400); Red Blood Count 3.31 MC/CUMM (3.8-5.5); Red Cell Distribution Width 14.7 % (9.3-17.3)
[2021-01-11 05:55] LABS: Calcium 9.2 MG/DL (8.5-10.1); Osmolality,Calculated 289.4 MOS/KG (273-304); Potassium 3.7 MMOL/L (3.5-5.1)
[2021-01-11 05:58] LABS: INR 2.1; PT Patient Result 21.8 SECS (9.8-11.9)
[2021-01-11] MEDS: BUDESONIDE 0.5 MG/2 ML NEB RESP TX SCH (07:02)
[2021-01-11] MEDS: DORNASE ALFA 2.5 MG/2.5 ML VIAL RESP TX SCH (07:12)
[2021-01-11] MEDS: NYSTATIN 500,000 UNIT/5 ML UDCUP SWISH/SWAL SCH ×3 (08:31→17:30)
[2021-01-11] MEDS: TAMSULOSIN 0.4 MG CAPSULE PO SCH (08:32)
[2021-01-11] MEDS: PANTOPRAZOLE 40 MG TABLET PO SCH (08:32)
[2021-01-11] MEDS: DOCUSATE SODIUM 100 MG CAPSULE PO SCH (08:32)
[2021-01-11] MEDS: MONTELUKAST 10 MG TABLET PO SCH (08:32)
[2021-01-11] MEDS: DILTIAZEM CD 120 MG CAPSULE PO SCH (08:32)
[2021-01-11] MEDS: METOPROLOL TARTRATE 50 MG TABLET PO SCH (08:32)
[2021-01-11] MEDS: ERTAPENEM 1,000 MG in SODIUM CHLORIDE 0.9% 100 ML IV SCH (12:20)
[2021-01-11 16:17] VITALS: BP 116/47
[2021-01-11] MEDS: WARFARIN 7.5 MG TABLET PO SCH (17:30)
== END 2021-01-11 19:53 | DRG 853 ==
LOC: N.ED 07:43 → N.EDINP 08:54 → N.ICU 09:19 → N.TELEN 01-08 14:12
PROVIDERS: ADMIT Surgery; ATTEND Surgery

== ENCOUNTER 2021-01-19 15:50 | Inpatient (IN) ==
[2021-01-19] MEDS ORDERED: ONDANSETRON 4 MG/2 ML VIAL IV PRN (18:49)
[2021-01-19] MEDS ORDERED: ACETAMINOPHEN 325 MG TABLET PO PRN (18:49)
[2021-01-19] MEDS ORDERED: GLUCAGON 1 MG VIAL IM PRN (18:49)
[2021-01-19] MEDS ORDERED: DEXTROSE 50% 25 GM/50 ML VIAL IV PRN (18:49)
[2021-01-19] MEDS ORDERED: ZALEPLON 5 MG CAPSULE PO PRN (18:52)
[2021-01-19] MEDS ORDERED: PHENYLEPH/MINERAL OIL/PETROLAT 57 GM TUBE TOP PRN (18:52)
[2021-01-19] MEDS ORDERED: ALUMINUM/MAGNES/SIMETH MAX STR 30 ML UDCUP PO PRN (18:52)
[2021-01-19] MEDS ORDERED: SODIUM CHLORIDE 0.9% 1,000 ML IV SCH (19:00)
[2021-01-19] MEDS: SODIUM CHLORIDE 0.45% 1,000 ML IV SCH ×2 (19:00→21:32)
[2021-01-19] MEDS ORDERED: SODIUM CHLORIDE 0.45% 500 ML IV ONE (19:00)
[2021-01-19] MEDS ORDERED: ONDANSETRON 4 MG/2 ML VIAL IM PRN (19:17)
[2021-01-19] MEDS: PANTOPRAZOLE 40 MG TABLET PO SCH (20:25)
[2021-01-19] MEDS: CLINDAMYCIN 300 MG CAPSULE PO SCH (20:25)
[2021-01-19] MEDS: ROSUVASTATIN 10 MG TABLET PO SCH (20:25)
[2021-01-19] MEDS: methylPREDNISolone SOD SUC 125 MG/2 ML VIAL IV SCH (20:25)
[2021-01-19] MEDS: LACTULOSE 20 GM/30 ML UDCUP RECTAL SCH (20:25)
[2021-01-19] MEDS: DESITIN 4OZ/NYSTATIN 15 GRAM MIXTURE PASTE TOP SCH (21:35)
[2021-01-20] MEDS: SODIUM CHLORIDE 0.45% 1,000 ML IV SCH ×3 (05:00→20:36)
[2021-01-20 05:06] LABS: Basophils % 0.3 % (0.0-0.8); Hematocrit 29.3 VOL% (42.0-52.0); Hemoglobin 8.7 GM/DL (14.0-18.0); Immature Granulocytes Absolute 0.18 #; Lymphocytes # 0.3 10*3/uL (1.4-4.0); Lymphocytes % 3.5 % (21.2-54.2); Mean Corpuscular HGB Conc 29.7 GM/DL (32-36); Mean Corpuscular Volume 93.3 FL (87-102); Mean Platelet Volume 10.4 FL (9.6-12.0); Monocytes % 1.1 % (1.7-12.7); Neutrophils % 93.1 % (38.7-73.9); Platelet Count 264 T/CUMM (130-400); Red Blood Count 3.14 MC/CUMM (3.8-5.5); Red Cell Distribution Width 15.2 % (9.3-17.3); White Blood Count 9.2 T/CUMM (4-12)
[2021-01-20 05:15] LABS: INR 2.8
[2021-01-20 05:20] LABS: PT Patient Result 28.9 SECS (9.8-11.9)
[2021-01-20 05:36] LABS: Eosinophils 1 % (0-10); Hypochromasia 1+; Lymphocytes 3 % (20-55); Microcytosis 1+; Ovalocytes Few; Segmented Neutrophils 96 % (50-85); Total Cells Counted 100
[2021-01-20 05:37] LABS: Platelet Estimate Normal
[2021-01-20 05:49] LABS: Calcium 8.8 MG/DL (8.5-10.1); Osmolality,Calculated 292.1 MOS/KG (273-304); Potassium 4.3 MMOL/L (3.5-5.1)
[2021-01-20] MEDS: CLINDAMYCIN 300 MG CAPSULE PO SCH ×3 (09:18→20:35)
[2021-01-20] MEDS: FERROUS SULFATE 325 MG TABLET PO SCH (09:18)
[2021-01-20] MEDS: TAMSULOSIN 0.4 MG CAPSULE PO SCH (09:18)
[2021-01-20] MEDS: CYANOCOBALAMIN 500 MCG TABLET PO SCH (09:18)
[2021-01-20] MEDS: MAGNESIUM CHLORIDE 64 MG TABLET PO SCH (09:19)
[2021-01-20] MEDS: CHOLECALCIFEROL 5,000 UNIT TABLET PO SCH (09:19)
[2021-01-20] MEDS: PYRIDOXINE 100 MG TABLET PO SCH (09:19)
[2021-01-20] MEDS: PANTOPRAZOLE 40 MG TABLET PO SCH ×2 (09:19→20:35)
[2021-01-20] MEDS: MONTELUKAST 10 MG TABLET PO SCH (09:19)
[2021-01-20] MEDS: LORATADINE 10 MG TABLET PO SCH (09:19)
[2021-01-20] MEDS: DESITIN 4OZ/NYSTATIN 15 GRAM MIXTURE PASTE TOP SCH ×2 (09:20→20:35)
[2021-01-20] MEDS: LACTULOSE 20 GM/30 ML UDCUP RECTAL SCH ×2 (09:34→17:05)
[2021-01-20] MEDS: methylPREDNISolone SOD SUC 125 MG/2 ML VIAL IV SCH (17:05)
[2021-01-20] MEDS ORDERED: WARFARIN 7.5 MG TABLET PO SCH (18:00)
[2021-01-20] MEDS: ROSUVASTATIN 10 MG TABLET PO SCH (20:35)
[2021-01-21] MEDS: SODIUM CHLORIDE 0.45% 1,000 ML IV SCH ×4 (01:00→16:22)
[2021-01-21 05:50] LABS: Basophils # 0.1 10*3/uL (0.0-0.2); Basophils % 0.6 % (0.0-0.8); Eosinophils % 0.3 % (0.00-10.9); Hematocrit 32.6 VOL% (42.0-52.0); Hemoglobin 9.9 GM/DL (14.0-18.0); Immature Granulocytes Absolute 0.54 #; Lymphocytes # 0.8 10*3/uL (1.4-4.0); Lymphocytes % 6.9 % (21.2-54.2); Mean Corpuscular HGB Conc 30.4 GM/DL (32-36); Mean Corpuscular Volume 92.1 FL (87-102); Mean Platelet Volume 9.9 FL (9.6-12.0); Monocytes % 8.6 % (1.7-12.7); Neutrophils % 78.6 % (38.7-73.9); Platelet Count 232 T/CUMM (130-400); Red Blood Count 3.54 MC/CUMM (3.8-5.5); Red Cell Distribution Width 15.1 % (9.3-17.3); White Blood Count 10.9 T/CUMM (4-12)
[2021-01-21 06:08] LABS: Calcium 8.8 MG/DL (8.5-10.1); Potassium 4.3 MMOL/L (3.5-5.1)
[2021-01-21 06:15] LABS: Band Neutrophils 1 % (0-10); Eosinophils 1 % (0-10); Hypochromasia 1+; Lymphocytes 10 % (20-55); Microcytosis 1+; Myelocytes 1 %; Segmented Neutrophils 80 % (50-85); Total Cells Counted 100
[2021-01-21 06:16] LABS: Ovalocytes Few; Platelet Estimate Normal
[2021-01-21] MEDS: TAMSULOSIN 0.4 MG CAPSULE PO SCH (08:46)
[2021-01-21] MEDS: CYANOCOBALAMIN 500 MCG TABLET PO SCH (08:46)
[2021-01-21] MEDS: DESITIN 4OZ/NYSTATIN 15 GRAM MIXTURE PASTE TOP SCH ×2 (08:46→21:29)
[2021-01-21] MEDS: LORATADINE 10 MG TABLET PO SCH (08:46)
[2021-01-21] MEDS: CHOLECALCIFEROL 5,000 UNIT TABLET PO SCH (08:46)
[2021-01-21] MEDS: CLINDAMYCIN 300 MG CAPSULE PO SCH ×3 (08:46→21:29)
[2021-01-21] MEDS: MAGNESIUM CHLORIDE 64 MG TABLET PO SCH (08:46)
[2021-01-21] MEDS: PYRIDOXINE 100 MG TABLET PO SCH (08:46)
[2021-01-21] MEDS: FERROUS SULFATE 325 MG TABLET PO SCH (08:46)
[2021-01-21] MEDS: MONTELUKAST 10 MG TABLET PO SCH (08:46)
[2021-01-21] MEDS: PANTOPRAZOLE 40 MG TABLET PO SCH ×2 (08:46→21:29)
[2021-01-21] MEDS ORDERED: WARFARIN 5 MG TABLET PO SCH (18:00)
[2021-01-21] MEDS: ROSUVASTATIN 10 MG TABLET PO SCH (21:29)
[2021-01-21] MEDS: BUDESONIDE/FORMOTEROL 160-4.5 INHALER 6 GM INH PRN (21:43)
[2021-01-22] MEDS: SODIUM CHLORIDE 0.45% 1,000 ML IV SCH ×4 (07:20→16:55)
[2021-01-22] MEDS: DESITIN 4OZ/NYSTATIN 15 GRAM MIXTURE PASTE TOP SCH ×2 (08:28→21:35)
[2021-01-22] MEDS: BUDESONIDE/FORMOTEROL 160-4.5 INHALER 6 GM INH PRN ×2 (08:28→21:47)
[2021-01-22] MEDS: CYANOCOBALAMIN 500 MCG TABLET PO SCH (08:29)
[2021-01-22] MEDS: CLINDAMYCIN 300 MG CAPSULE PO SCH ×3 (08:29→21:35)
[2021-01-22] MEDS: MONTELUKAST 10 MG TABLET PO SCH (08:29)
[2021-01-22] MEDS: PANTOPRAZOLE 40 MG TABLET PO SCH ×2 (08:29→21:35)
[2021-01-22] MEDS: MAGNESIUM CHLORIDE 64 MG TABLET PO SCH (08:29)
[2021-01-22] MEDS: TAMSULOSIN 0.4 MG CAPSULE PO SCH (08:29)
[2021-01-22] MEDS: FERROUS SULFATE 325 MG TABLET PO SCH (08:29)
[2021-01-22] MEDS: predniSONE 20 MG TABLET PO SCH (08:29)
[2021-01-22] MEDS: PYRIDOXINE 100 MG TABLET PO SCH (08:29)
[2021-01-22] MEDS: LORATADINE 10 MG TABLET PO SCH (08:29)
[2021-01-22] MEDS: CHOLECALCIFEROL 5,000 UNIT TABLET PO SCH (08:30)
[2021-01-22 08:37] LABS: PT Patient Result 20.3 SECS (9.8-11.9)
[2021-01-22 08:41] LABS: Calcium 8.5 MG/DL (8.5-10.1); Potassium 3.9 MMOL/L (3.5-5.1)
[2021-01-22] MEDS: ROSUVASTATIN 10 MG TABLET PO SCH (21:35)
[2021-01-23] MEDS: PYRIDOXINE 100 MG TABLET PO SCH (08:39)
[2021-01-23] MEDS: CYANOCOBALAMIN 500 MCG TABLET PO SCH (08:39)
[2021-01-23] MEDS: MONTELUKAST 10 MG TABLET PO SCH (08:39)
[2021-01-23] MEDS: TAMSULOSIN 0.4 MG CAPSULE PO SCH (08:39)
[2021-01-23] MEDS: CHOLECALCIFEROL 5,000 UNIT TABLET PO SCH (08:39)
[2021-01-23] MEDS: predniSONE 20 MG TABLET PO SCH (08:39)
[2021-01-23] MEDS: DESITIN 4OZ/NYSTATIN 15 GRAM MIXTURE PASTE TOP SCH ×2 (08:39→21:34)
[2021-01-23] MEDS: MAGNESIUM CHLORIDE 64 MG TABLET PO SCH (08:39)
[2021-01-23] MEDS: CLINDAMYCIN 300 MG CAPSULE PO SCH ×3 (08:39→21:35)
[2021-01-23] MEDS: LORATADINE 10 MG TABLET PO SCH (08:40)
[2021-01-23] MEDS: PANTOPRAZOLE 40 MG TABLET PO SCH ×2 (08:40→21:35)
[2021-01-23] MEDS: FERROUS SULFATE 325 MG TABLET PO SCH (08:40)
[2021-01-23] MEDS: FUROSEMIDE 40 MG/4 ML VIAL IV SCH (17:03)
[2021-01-23] MEDS: WARFARIN 5 MG TABLET PO SCH (17:03)
[2021-01-23] MEDS: ROSUVASTATIN 10 MG TABLET PO SCH (21:35)
[2021-01-24 05:32] LABS: Osmolality,Calculated 281.3 MOS/KG (273-304); Potassium 3.5 MMOL/L (3.5-5.1)
[2021-01-24] MEDS: CHOLECALCIFEROL 5,000 UNIT TABLET PO SCH (09:12)
[2021-01-24] MEDS: FUROSEMIDE 40 MG/4 ML VIAL IV SCH (09:12)
[2021-01-24] MEDS: MAGNESIUM CHLORIDE 64 MG TABLET PO SCH (09:12)
[2021-01-24] MEDS: PYRIDOXINE 100 MG TABLET PO SCH (09:13)
[2021-01-24] MEDS: CYANOCOBALAMIN 500 MCG TABLET PO SCH (09:13)
[2021-01-24] MEDS: PANTOPRAZOLE 40 MG TABLET PO SCH ×2 (09:13→20:57)
[2021-01-24] MEDS: LORATADINE 10 MG TABLET PO SCH (09:13)
[2021-01-24] MEDS: MONTELUKAST 10 MG TABLET PO SCH (09:13)
[2021-01-24] MEDS: FERROUS SULFATE 325 MG TABLET PO SCH (09:13)
[2021-01-24] MEDS: CLINDAMYCIN 300 MG CAPSULE PO SCH ×3 (09:13→20:57)
[2021-01-24] MEDS: TAMSULOSIN 0.4 MG CAPSULE PO SCH (09:13)
[2021-01-24] MEDS: predniSONE 20 MG TABLET PO SCH (09:13)
[2021-01-24] MEDS: DESITIN 4OZ/NYSTATIN 15 GRAM MIXTURE PASTE TOP SCH ×2 (09:26→20:58)
[2021-01-24] MEDS: WARFARIN 5 MG TABLET PO SCH (17:21)
[2021-01-24] MEDS: ROSUVASTATIN 10 MG TABLET PO SCH (20:57)
[2021-01-25] MEDS: CYANOCOBALAMIN 500 MCG TABLET PO SCH (09:14)
[2021-01-25] MEDS: MAGNESIUM CHLORIDE 64 MG TABLET PO SCH (09:16)
[2021-01-25] MEDS: CHOLECALCIFEROL 5,000 UNIT TABLET PO SCH (09:16)
[2021-01-25] MEDS: FERROUS SULFATE 325 MG TABLET PO SCH (09:17)
[2021-01-25] MEDS: PANTOPRAZOLE 40 MG TABLET PO SCH (09:18)
[2021-01-25] MEDS: TAMSULOSIN 0.4 MG CAPSULE PO SCH (09:18)
[2021-01-25] MEDS: CLINDAMYCIN 300 MG CAPSULE PO SCH ×2 (09:19→14:33)
[2021-01-25] MEDS: LORATADINE 10 MG TABLET PO SCH (09:19)
[2021-01-25] MEDS: MONTELUKAST 10 MG TABLET PO SCH (09:20)
[2021-01-25] MEDS: PYRIDOXINE 100 MG TABLET PO SCH (09:25)
[2021-01-25] MEDS: DESITIN 4OZ/NYSTATIN 15 GRAM MIXTURE PASTE TOP SCH (09:36)
[2021-01-25 12:22] VITALS: BP 124/55
== END 2021-01-25 15:38 | disposition swing bed (61) | DRG 948 ==
LOC: N.5E → SUATTDRO 01-22 13:26
PROVIDERS: ADMIT Internal Medicine; ATTEND Internal Medicine

== ENCOUNTER 2022-02-01 22:42 | Inpatient (IN) ==
[2022-02-01] MEDS ORDERED: methylPREDNISolone SOD SUC 125 MG/2 ML VIAL IV STA (22:55)
[2022-02-01] MEDS ORDERED: FUROSEMIDE 40 MG/4 ML VIAL IV STA ×2 (22:55→23:06)
[2022-02-01] MEDS ORDERED: MORPHINE 2 MG/1 ML SYRINGE IV STA (22:55)
[2022-02-01] MEDS ORDERED: ONDANSETRON 4 MG/2 ML VIAL IV STA (22:55)
[2022-02-01] MEDS ORDERED: ALBUTEROL NEB SOLN 5 MG/ML 20 ML/BOTTLE CONT NEB SCH (23:00)
[2022-02-01 23:03] LABS: Basophils % 0.4 % (0.0-0.8); Eosinophils % 0.1 % (0.00-10.9); Hematocrit 26.2 VOL% (42.0-52.0); Hemoglobin 7.8 GM/DL (14.0-18.0); Immature Granulocytes % 0.8 %; Immature Granulocytes Absolute 0.08 #; Lymphocytes # 0.3 10*3/uL (1.4-4.0); Lymphocytes % 3.1 % (21.2-54.2); Mean Corpuscular HGB Conc 29.8 GM/DL (32-36); Mean Corpuscular Volume 94.6 FL (87-102); Mean Platelet Volume 9.3 FL (9.6-12.0); Monocytes # 1.4 10*3/uL (0.11-0.8); Monocytes % 13.6 % (1.7-12.7); Platelet Count 259 T/CUMM (130-400); Red Blood Count 2.77 MC/CUMM (3.8-5.5); Red Cell Distribution Width 16.7 % (9.3-17.3); White Blood Count 10.6 T/CUMM (4-12)
[2022-02-01] MEDS ORDERED: DILTIAZEM 25 MG/5 ML VIAL IV ONE (23:09)
[2022-02-01 23:11] LABS: INR 1.2
[2022-02-01 23:23] LABS: Arterial Base Excess iSTAT 1 MMOL/L (-2.5-2.5); Arterial Bicarbonate iSTAT 27.8 MMOL/L (20-26); Arterial O2 Saturation iSTAT 84 % (95-100); Arterial PCO2 iSTAT 54 MM HG (35-48); Arterial PO2 iSTAT 54 MM HG (80-95); Arterial Total CO2 iSTAT 29 MMO/L (23-27); Arterial pH iSTAT 7.318 (7.35-7.45)
[2022-02-01] MEDS ORDERED: DILTIAZEM 50 MG/10 ML VIAL IV STA (23:23)
[2022-02-01 23:28] LABS: Lymphocytes 4 % (20-55); Platelet Estimate Adequate; Total Cells Counted 100
[2022-02-01 23:33] LABS: Albumin 2.9 G/DL (3.4-5.0); Bilirubin,Total 0.5 MG/DL (0.20-1.00); Calcium 9.2 MG/DL (8.5-10.1); Potassium 4.6 MMOL/L (3.5-5.1); Total Protein 6.3 G/DL (6.4-8.2)
[2022-02-01] MEDS ORDERED: METOPROLOL TARTRATE 5 MG/5 ML VIAL IV ONE (23:41)
[2022-02-01] MEDS ORDERED: SODIUM CHLORIDE 0.9% 500 ML IV STA (23:47)
[2022-02-01] MEDS ORDERED: ENOXAPARIN 100 MG/ML SYRINGE SUBCUT STA (23:51)
[2022-02-02] MEDS ORDERED: PIPERACILLIN/TAZOBACTAM 3,375 MG in SODIUM CHLORIDE 0.9% 100 ML IV STA (00:05)
[2022-02-02] MEDS: DILTIAZEM INJ 100 MG in SODIUM CHLORIDE 0.9% 100 ML IV SCH ×2 (00:11→23:05)
[2022-02-02] MEDS ORDERED: MORPHINE 2 MG/1 ML SYRINGE IV STA (00:13)
[2022-02-02] MEDS ORDERED: METOPROLOL TARTRATE 5 MG/5 ML VIAL IV STA (00:13)
[2022-02-02] MEDS ORDERED: VECURONIUM 10 MG VIAL IV STA (00:15)
[2022-02-02] MEDS ORDERED: ETOMIDATE 20 MG/10 ML VIAL IV STA (00:15)
[2022-02-02 02:59] LABS: ABG Base Excess -2.2 MMOL/L (-2.5-2.5); ABG HCO3 22.6 MMOL/L (20-26); ABG Oxygen Saturation 99.9 % (95-100); ABG TCO2 25.8 MMOL/L (23-27)
[2022-02-02] MEDS ORDERED: MAGNESIUM SULF RIDER 4 GM/100 ML PREMIX IV PRN (03:00)
[2022-02-02] MEDS ORDERED: GLUCAGON 1 MG VIAL IM PRN (03:00)
[2022-02-02] MEDS ORDERED: hydrALAZINE 20 MG/1 ML VIAL IV PRN (03:00)
[2022-02-02] MEDS ORDERED: ONDANSETRON 4 MG/2 ML VIAL IV PRN (03:00)
[2022-02-02] MEDS ORDERED: MAGNESIUM SULF RIDER 2 GM/50 ML PREMIX IV PRN (03:00)
[2022-02-02] MEDS ORDERED: DEXTROSE 10% 250 ML BAG IV PRN (03:00)
[2022-02-02 03:08] LABS: ABG PCO2 70.4 MM HG (35-48); ABG PH 7.192 (7.35-7.45)
[2022-02-02 04:56] LABS: Arterial Base Excess iSTAT 0 MMOL/L (-2.5-2.5); Arterial Bicarbonate iSTAT 27.8 MMOL/L (20-26); Arterial O2 Saturation iSTAT 100 % (95-100); Arterial PCO2 iSTAT 64 MM HG (35-48); Arterial PO2 iSTAT 242 MM HG (80-95); Arterial Total CO2 iSTAT 30 MMO/L (23-27); Arterial pH iSTAT 7.246 (7.35-7.45)
[2022-02-02] MEDS ORDERED: FUROSEMIDE 40 MG/4 ML VIAL IV ONE (05:42)
[2022-02-02 06:17] LABS: Basophils % 0.3 % (0.0-0.8); Hematocrit 24.7 VOL% (42.0-52.0); Hemoglobin 7.5 GM/DL (14.0-18.0); Immature Granulocytes % 0.7 %; Immature Granulocytes Absolute 0.05 #; Lymphocytes # 0.1 10*3/uL (1.4-4.0); Lymphocytes % 1.8 % (21.2-54.2); Mean Corpuscular HGB Conc 30.4 GM/DL (32-36); Mean Corpuscular Volume 92.5 FL (87-102); Mean Platelet Volume 9.3 FL (9.6-12.0); Monocytes # 0.6 10*3/uL (0.11-0.8); Monocytes % 7.5 % (1.7-12.7); Neutrophils % 89.7 % (38.7-73.9); Platelet Count 210 T/CUMM (130-400); Red Blood Count 2.67 MC/CUMM (3.8-5.5); Red Cell Distribution Width 16.7 % (9.3-17.3); White Blood Count 7.4 T/CUMM (4-12)
[2022-02-02 06:40] LABS: Band Neutrophils 3 % (0-10); Hypochromia 1+; Lymphocytes 1 % (20-55); Microcytosis 1+; Platelet Estimate Adequate; Total Cells Counted 100
[2022-02-02 06:46] LABS: Albumin 2.4 G/DL (3.4-5.0); Bilirubin,Total 0.5 MG/DL (0.20-1.00); Calcium 9.7 MG/DL (8.5-10.1); Osmolality,Calculated 287.5 MOS/KG (273-304); Potassium 4.3 MMOL/L (3.5-5.1); Risk Ratio 4.46; Total Protein 6.5 G/DL (6.4-8.2); VLDL Cholesterol 21.8 MG/DL
[2022-02-02] MEDS ORDERED: FUROSEMIDE 40 MG/4 ML VIAL IV SCH (08:00)
[2022-02-02 08:28] LABS: Hyaline Casts,Urine 14 /LPF (0-3); RBC,Urine 723 /HPF (0-4)
[2022-02-02 08:30] LABS: Bilirubin,Urine Small mg/dL (Negative); Blood, Urine Large mg/dL (Negative); Glucose,Urine (UA) Negative (Negative); Ketones,Urine Trace mg/dL (Negative); Nitrite,Urine Negative (Negative); Protein,Urine >=300 mg/dL (Negative); Urine Appearance Slightly Cloudy (Clear); Urine Color Red (Yellow); Urine Urobilinogen 0.2 eU/dL (<2.0)
[2022-02-02] MEDS ORDERED: DIGOXIN 0.5 MG/2 ML AMP IV ONE ×2 (08:31→10:00)
[2022-02-02] MEDS ORDERED: PHENYLEPHRINE DRIP 40 MG/250 ML PREMIX IV PRN (08:40)
[2022-02-02] MEDS ORDERED: PHENYLEPHRINE DRIP 40 MG/250 ML PREMIX IV ONE (08:40)
[2022-02-02] MEDS ORDERED: SODIUM CHLORIDE 0.9% 1,000 ML IV PRN (08:44)
[2022-02-02] MEDS: FUROSEMIDE INJ 200 MG in SODIUM CHLORIDE 0.9% 80 ML IV SCH (09:00)
[2022-02-02] MEDS: PANTOPRAZOLE 40 MG VIAL IV SCH (09:46)
[2022-02-02] MEDS: cefTRIAXone 1,000 MG in SODIUM CHLORIDE 0.9% 100 ML IV SCH (18:30)
[2022-02-02] MEDS: ENOXAPARIN 30 MG/0.3 ML SYRINGE SUBCUT SCH (20:13)
[2022-02-03] MEDS: DILTIAZEM INJ 100 MG in SODIUM CHLORIDE 0.9% 100 ML IV SCH ×3 (01:39→18:27)
[2022-02-03] MEDS: FUROSEMIDE INJ 200 MG in SODIUM CHLORIDE 0.9% 80 ML IV SCH (04:00)
[2022-02-03 04:06] LABS: Arterial Base Excess iSTAT 2 MMOL/L (-2.5-2.5); Arterial Bicarbonate iSTAT 28.7 MMOL/L (20-26); Arterial O2 Saturation iSTAT 100 % (95-100); Arterial PCO2 iSTAT 53 MM HG (35-48); Arterial PO2 iSTAT 294 MM HG (80-95); Arterial Total CO2 iSTAT 30 MMO/L (23-27); Arterial pH iSTAT 7.339 (7.35-7.45)
[2022-02-03 04:55] LABS: Basophils % 0.3 % (0.0-0.8); Hematocrit 29.8 VOL% (42.0-52.0); Hemoglobin 9.2 GM/DL (14.0-18.0); Immature Granulocytes % 1.9 %; Immature Granulocytes Absolute 0.21 #; Lymphocytes # 0.3 10*3/uL (1.4-4.0); Lymphocytes % 2.6 % (21.2-54.2); Mean Corpuscular HGB Conc 30.9 GM/DL (32-36); Mean Corpuscular Volume 91.4 FL (87-102); Mean Platelet Volume 9.3 FL (9.6-12.0); Monocytes % 8.8 % (1.7-12.7); Neutrophils % 86.4 % (38.7-73.9); Platelet Count 258 T/CUMM (130-400); Red Blood Count 3.26 MC/CUMM (3.8-5.5); Red Cell Distribution Width 15.9 % (9.3-17.3); White Blood Count 11.1 T/CUMM (4-12)
[2022-02-03 05:02] LABS: INR 1.1; PT Patient Result 12.2 SECS (10.5-12.0); Partial Thromboplastin Time 30.4 SECS (23.8-32.1)
[2022-02-03 05:10] LABS: Calcium 9.6 MG/DL (8.5-10.1); Osmolality,Calculated 297.7 MOS/KG (273-304); Potassium 3.7 MMOL/L (3.5-5.1)
[2022-02-03 05:16] LABS: Folate 4.12 NG/ML (5.38-24.0); Vitamin B12 > 2000 PG/ML (211-911)
[2022-02-03 05:18] LABS: Hypochromia Slight; Lymphocytes 3 % (20-55); Microcytosis Slight; Ovalocytes Slight; Platelet Estimate Adequate; Total Cells Counted 100
[2022-02-03 05:22] LABS: % Iron Saturation 12.7 % (18-50)
[2022-02-03] MEDS: PANTOPRAZOLE 40 MG VIAL IV SCH (09:37)
[2022-02-03] MEDS: FOLIC ACID 1 MG TABLET PO SCH (10:19)
[2022-02-03] MEDS: FERRIC GLUCONATE COMPLEX 125 MG in SODIUM CHLORIDE 0.9% 100 ML IV SCH (11:21)
[2022-02-03] MEDS: cefTRIAXone 1,000 MG in SODIUM CHLORIDE 0.9% 100 ML IV SCH (16:25)
[2022-02-03] MEDS: ENOXAPARIN 30 MG/0.3 ML SYRINGE SUBCUT SCH (20:02)
[2022-02-04] MEDS: DILTIAZEM INJ 100 MG in SODIUM CHLORIDE 0.9% 100 ML IV SCH ×2 (00:13→22:54)
[2022-02-04 03:46] LABS: ABG HCO3 27.2 MMOL/L (20-26); ABG Oxygen Saturation 98.9 % (95-100); ABG PCO2 47.5 MM HG (35-48); ABG PH 7.388 (7.35-7.45); ABG TCO2 26.2 MMOL/L (23-27)
[2022-02-04 04:31] LABS: Basophils # 0.1 10*3/uL (0.0-0.2); Basophils % 0.7 % (0.0-0.8); Hematocrit 33.2 VOL% (42.0-52.0); Hemoglobin 10.2 GM/DL (14.0-18.0); Immature Granulocytes % 5.2 %; Immature Granulocytes Absolute 0.62 #; Lymphocytes # 0.6 10*3/uL (1.4-4.0); Lymphocytes % 5.3 % (21.2-54.2); Mean Corpuscular HGB Conc 30.7 GM/DL (32-36); Mean Platelet Volume 9.3 FL (9.6-12.0); Monocytes # 1.2 10*3/uL (0.11-0.8); Monocytes % 9.8 % (1.7-12.7); Platelet Count 229 T/CUMM (130-400); Red Blood Count 3.61 MC/CUMM (3.8-5.5); Red Cell Distribution Width 16.1 % (9.3-17.3); White Blood Count 11.9 T/CUMM (4-12)
[2022-02-04 04:51] LABS: Calcium 9.8 MG/DL (8.5-10.1); Osmolality,Calculated 302.4 MOS/KG (273-304); Potassium 3.4 MMOL/L (3.5-5.1)
[2022-02-04 04:53] LABS: Band Neutrophils 2 % (0-10); Lymphocytes 6 % (20-55); Metamyelocytes 1 %; Myelocytes 2 %; Platelet Estimate Normal; Total Cells Counted 100
[2022-02-04] MEDS: FUROSEMIDE INJ 200 MG in SODIUM CHLORIDE 0.9% 80 ML IV SCH (05:00)
[2022-02-04] MEDS ORDERED: POTASSIUM BICARB EFFERVESCENT 20 MEQ TAB.EFF PO ONE (07:57)
[2022-02-04] MEDS: METOPROLOL TARTRATE 50 MG TABLET PO SCH ×2 (09:05→20:50)
[2022-02-04] MEDS: FOLIC ACID 1 MG TABLET PO SCH (09:05)
[2022-02-04] MEDS: PANTOPRAZOLE 40 MG VIAL IV SCH (09:06)
[2022-02-04] MEDS: FUROSEMIDE 40 MG/4 ML VIAL IV SCH (09:06)
[2022-02-04] MEDS: FERRIC GLUCONATE COMPLEX 125 MG in SODIUM CHLORIDE 0.9% 100 ML IV SCH (09:06)
[2022-02-04 12:46] LABS: M. Tuberculosis PCR Result Negative (Negative); M. Tuberculosis PCR Source BRONCH WASH
[2022-02-04] MEDS: cefTRIAXone 1,000 MG in SODIUM CHLORIDE 0.9% 100 ML IV SCH (15:48)
[2022-02-04] MEDS: ENOXAPARIN 30 MG/0.3 ML SYRINGE SUBCUT SCH (20:50)
[2022-02-05] MEDS ORDERED: METOPROLOL TARTRATE 5 MG/5 ML VIAL IV ONE (01:40)
[2022-02-05 03:27] LABS: Arterial Base Excess iSTAT 8 MMOL/L (-2.5-2.5); Arterial Bicarbonate iSTAT 35.8 MMOL/L (20-26); Arterial O2 Saturation iSTAT 83 % (95-100); Arterial PCO2 iSTAT 68 MM HG (35-48); Arterial PO2 iSTAT 52 MM HG (80-95); Arterial Total CO2 iSTAT 38 MMO/L (23-27); Arterial pH iSTAT 7.329 (7.35-7.45)
[2022-02-05 03:53] LABS: Basophils % 0.1 % (0.0-0.8); Eosinophils % 0.2 % (0.00-10.9); Hematocrit 33.3 VOL% (42.0-52.0); Hemoglobin 10.1 GM/DL (14.0-18.0); Immature Granulocytes % 11.7 %; Lymphocytes # 0.5 10*3/uL (1.4-4.0); Lymphocytes % 3.5 % (21.2-54.2); Mean Corpuscular HGB Conc 30.3 GM/DL (32-36); Mean Corpuscular Volume 92.8 FL (87-102); Mean Platelet Volume 9.3 FL (9.6-12.0); Monocytes # 1.2 10*3/uL (0.11-0.8); Neutrophils % 75.5 % (38.7-73.9); Platelet Count 255 T/CUMM (130-400); Red Blood Count 3.59 MC/CUMM (3.8-5.5); White Blood Count 12.8 T/CUMM (4-12)
[2022-02-05 04:11] LABS: Calcium 9.3 MG/DL (8.5-10.1); Potassium 3.9 MMOL/L (3.5-5.1)
[2022-02-05 04:23] LABS: Eosinophils 1 % (0-10); Hypochromia Slight; Lymphocytes 7 % (20-55); Microcytosis 1+; Myelocytes 3 %; Total Cells Counted 100
[2022-02-05 04:24] LABS: Ovalocytes Slight; Platelet Estimate Normal
[2022-02-05 04:34] LABS: ABG Base Excess 5.7 MMOL/L (-2.5-2.5); ABG HCO3 29.6 MMOL/L (20-26); ABG Oxygen Saturation 97.6 % (95-100); ABG PCO2 64.8 MM HG (35-48); ABG PH 7.323 (7.35-7.45); ABG TCO2 30.8 MMOL/L (23-27)
[2022-02-05] MEDS ORDERED: DIGOXIN 0.5 MG/2 ML AMP IV ONE ×3 (07:14→18:15)
[2022-02-05] MEDS: FUROSEMIDE 40 MG/4 ML VIAL IV SCH (08:20)
[2022-02-05] MEDS: PANTOPRAZOLE 40 MG VIAL IV SCH (08:20)
[2022-02-05] MEDS: FOLIC ACID 1 MG TABLET PO SCH (08:21)
[2022-02-05] MEDS: ENOXAPARIN 80 MG/0.8 ML SYRINGE SUBCUT SCH (08:21)
[2022-02-05] MEDS: METOPROLOL TARTRATE 50 MG TABLET PO SCH ×2 (08:21→21:17)
[2022-02-05] MEDS ORDERED: VANCOMYCIN INJ 1,250 MG in SODIUM CHLORIDE 0.9% 250 ML IV SCH (08:30)
[2022-02-05] MEDS ORDERED: VANCOMYCIN INJ 1,750 MG in SODIUM CHLORIDE 0.9% 500 ML IV ONE (10:00)
[2022-02-05] MEDS: FERRIC GLUCONATE COMPLEX 125 MG in SODIUM CHLORIDE 0.9% 100 ML IV SCH (10:25)
[2022-02-05] MEDS: cefTRIAXone 1,000 MG in SODIUM CHLORIDE 0.9% 100 ML IV SCH (16:35)
[2022-02-05] MEDS: DILTIAZEM INJ 100 MG in SODIUM CHLORIDE 0.9% 100 ML IV SCH (23:42)
[2022-02-06 03:25] LABS: ABG Base Excess 5.8 MMOL/L (-2.5-2.5); ABG HCO3 29.7 MMOL/L (20-26); ABG Oxygen Saturation 97.5 % (95-100); ABG PCO2 60.5 MM HG (35-48); ABG PH 7.346 (7.35-7.45); ABG PO2 96.1 MM HG (80-95); ABG TCO2 30.3 MMOL/L (23-27)
[2022-02-06 04:28] LABS: Basophils % 0.1 % (0.0-0.8); Eosinophils # 0.2 10*3/uL (0.0-0.87); Eosinophils % 1.2 % (0.00-10.9); Hematocrit 33.9 VOL% (42.0-52.0); Hemoglobin 10.2 GM/DL (14.0-18.0); Immature Granulocytes % 15.2 %; Immature Granulocytes Absolute 1.95 #; Lymphocytes # 0.6 10*3/uL (1.4-4.0); Lymphocytes % 4.9 % (21.2-54.2); Mean Corpuscular HGB Conc 30.1 GM/DL (32-36); Mean Corpuscular Volume 93.4 FL (87-102); Mean Platelet Volume 9.2 FL (9.6-12.0); Monocytes % 7.9 % (1.7-12.7); Neutrophils % 70.7 % (38.7-73.9); Platelet Count 239 T/CUMM (130-400); Red Blood Count 3.63 MC/CUMM (3.8-5.5); White Blood Count 12.8 T/CUMM (4-12)
[2022-02-06 04:53] LABS: Eosinophils 3 % (0-10); Hypochromia Slight; Lymphocytes 2 % (20-55); Microcytosis Slight; Platelet Estimate Adequate; Total Cells Counted 100
[2022-02-06 05:27] LABS: Calcium 9.5 MG/DL (8.5-10.1); Osmolality,Calculated 319.6 MOS/KG (273-304); Potassium 4.3 MMOL/L (3.5-5.1)
[2022-02-06] MEDS: ENOXAPARIN 80 MG/0.8 ML SYRINGE SUBCUT SCH (09:01)
[2022-02-06] MEDS: PANTOPRAZOLE 40 MG VIAL IV SCH (09:05)
[2022-02-06] MEDS: METOPROLOL TARTRATE 50 MG TABLET PO SCH ×2 (09:07→22:00)
[2022-02-06] MEDS: FOLIC ACID 1 MG TABLET PO SCH (09:07)
[2022-02-06] MEDS: FUROSEMIDE 40 MG/4 ML VIAL IV SCH (09:21)
[2022-02-06 09:41] LABS: M. Tuberculosis PCR Result Negative (Negative); M. Tuberculosis PCR Source BRONCH WASH
[2022-02-06] MEDS: methylPREDNISolone SOD SUC 125 MG/2 ML VIAL IV SCH ×2 (09:45→16:57)
[2022-02-06] MEDS: FERRIC GLUCONATE COMPLEX 125 MG in SODIUM CHLORIDE 0.9% 100 ML IV SCH (09:46)
[2022-02-06] MEDS ORDERED: DIGOXIN 0.125 MG TABLET PER TUBE SCH (14:00)
[2022-02-06] MEDS: cefTRIAXone 1,000 MG in SODIUM CHLORIDE 0.9% 100 ML IV SCH (16:58)
[2022-02-06] MEDS ORDERED: ACETAMINOPHEN 325 MG TABLET PO PRN (22:53)
[2022-02-06] MEDS: DILTIAZEM INJ 100 MG in SODIUM CHLORIDE 0.9% 100 ML IV SCH (23:03)
[2022-02-07] MEDS: INSULIN REGULAR 100 UNIT/ML SUBCUT SCH ×4 (01:09→17:23)
[2022-02-07] MEDS: methylPREDNISolone SOD SUC 125 MG/2 ML VIAL IV SCH ×3 (01:22→17:46)
[2022-02-07 04:04] LABS: Arterial Base Excess iSTAT 8 MMOL/L (-2.5-2.5); Arterial Bicarbonate iSTAT 35.5 MMOL/L (20-26); Arterial O2 Saturation iSTAT 97 % (95-100); Arterial PCO2 iSTAT 65 MM HG (35-48); Arterial PO2 iSTAT 100 MM HG (80-95); Arterial Total CO2 iSTAT 37 MMO/L (23-27); Arterial pH iSTAT 7.345 (7.35-7.45)
[2022-02-07 04:44] LABS: Osmolality,Calculated 329.3 MOS/KG (273-304); Potassium 5.2 MMOL/L (3.5-5.1)
[2022-02-07 04:52] LABS: Basophils % 0.1 % (0.0-0.8); Eosinophils % 0.1 % (0.00-10.9); Hematocrit 32.7 VOL% (42.0-52.0); Hemoglobin 9.7 GM/DL (14.0-18.0); Immature Granulocytes % 10.4 %; Immature Granulocytes Absolute 1.42 #; Lymphocytes # 0.5 10*3/uL (1.4-4.0); Lymphocytes % 3.6 % (21.2-54.2); Mean Corpuscular HGB Conc 29.7 GM/DL (32-36); Mean Corpuscular Volume 94.8 FL (87-102); Mean Platelet Volume 9.8 FL (9.6-12.0); Monocytes # 0.6 10*3/uL (0.11-0.8); Monocytes % 4.3 % (1.7-12.7); Neutrophils % 81.5 % (38.7-73.9); Platelet Count 212 T/CUMM (130-400); Red Blood Count 3.45 MC/CUMM (3.8-5.5); Red Cell Distribution Width 16.2 % (9.3-17.3); White Blood Count 13.6 T/CUMM (4-12)
[2022-02-07 05:02] LABS: Band Neutrophils 1 % (0-10); Hypochromia 1+; Lymphocytes 6 % (20-55); Microcytosis 1+; Ovalocytes Slight; Platelet Estimate Adequate; Total Cells Counted 100
[2022-02-07] MEDS ORDERED: MORPHINE 2 MG/1 ML SYRINGE ONE (08:00)
[2022-02-07] MEDS ORDERED: MORPHINE 2 MG/1 ML SYRINGE IV ONE (08:30)
[2022-02-07] MEDS: ENOXAPARIN 80 MG/0.8 ML SYRINGE SUBCUT SCH (08:37)
[2022-02-07] MEDS: PANTOPRAZOLE 40 MG VIAL IV SCH (08:42)
[2022-02-07] MEDS: METOCLOPRAMIDE 10 MG/2 ML VIAL IV SCH ×3 (08:44→21:27)
[2022-02-07] MEDS: METOPROLOL TARTRATE 50 MG TABLET PO SCH ×2 (08:48→20:41)
[2022-02-07] MEDS: FOLIC ACID 1 MG TABLET PO SCH (08:48)
[2022-02-07] MEDS: FERRIC GLUCONATE COMPLEX 125 MG in SODIUM CHLORIDE 0.9% 100 ML IV SCH (08:59)
[2022-02-07] MEDS: DILTIAZEM 60 MG TABLET PO SCH ×2 (12:06→17:46)
[2022-02-07] MEDS: LEVOFLOXACIN INJ 750 MG/150 ML PREMIX IV SCH (12:07)
[2022-02-07] MEDS: MORPHINE 2 MG/1 ML SYRINGE IV PRN ×3 (13:36→23:56)
[2022-02-07] MEDS ORDERED: QUEtiapine 25 MG TABLET PO SCH (21:00)
[2022-02-07] MEDS ORDERED: SERTRALINE 25 MG TABLET PO SCH (21:00)
[2022-02-07] MEDS: DILTIAZEM INJ 100 MG in SODIUM CHLORIDE 0.9% 100 ML IV SCH (23:11)
[2022-02-08] MEDS: INSULIN REGULAR 100 UNIT/ML SUBCUT SCH ×5 (00:19→23:34)
[2022-02-08] MEDS: DILTIAZEM 60 MG TABLET PO SCH ×4 (01:10→18:08)
[2022-02-08] MEDS: methylPREDNISolone SOD SUC 125 MG/2 ML VIAL IV SCH ×3 (01:48→18:08)
[2022-02-08] MEDS: METOCLOPRAMIDE 10 MG/2 ML VIAL IV SCH ×4 (01:52→20:09)
[2022-02-08 03:56] LABS: ABG Base Excess 5.7 MMOL/L (-2.5-2.5); ABG HCO3 29.6 MMOL/L (20-26); ABG Oxygen Saturation 98.9 % (95-100); ABG PH 7.347 (7.35-7.45); ABG TCO2 30.2 MMOL/L (23-27)
[2022-02-08 03:58] LABS: Basophils # 0.1 10*3/uL (0.0-0.2); Basophils % 0.6 % (0.0-0.8); Hematocrit 32.7 VOL% (42.0-52.0); Hemoglobin 9.7 GM/DL (14.0-18.0); Immature Granulocytes % 6.7 %; Immature Granulocytes Absolute 0.83 #; Lymphocytes # 0.5 10*3/uL (1.4-4.0); Lymphocytes % 4.1 % (21.2-54.2); Mean Corpuscular HGB Conc 29.7 GM/DL (32-36); Mean Platelet Volume 9.6 FL (9.6-12.0); Monocytes # 0.4 10*3/uL (0.11-0.8); Monocytes % 3.3 % (1.7-12.7); Neutrophils % 85.3 % (38.7-73.9); Platelet Count 191 T/CUMM (130-400); Red Blood Count 3.48 MC/CUMM (3.8-5.5); Red Cell Distribution Width 15.9 % (9.3-17.3); White Blood Count 12.3 T/CUMM (4-12)
[2022-02-08 04:09] LABS: INR 1.1; PT Patient Result 12.1 SECS (10.5-12.0); Partial Thromboplastin Time 27.9 SECS (23.8-32.1)
[2022-02-08 04:15] LABS: Calcium 9.5 MG/DL (8.5-10.1); Osmolality,Calculated 334.8 MOS/KG (273-304); Potassium 5.7 MMOL/L (3.5-5.1)
[2022-02-08 04:20] LABS: Band Neutrophils 1 % (0-10); Hypochromia Slight; Lymphocytes 4 % (20-55); Microcytosis Slight; Platelet Estimate Adequate; Total Cells Counted 100
[2022-02-08] MEDS: MORPHINE 2 MG/1 ML SYRINGE IV PRN ×2 (05:06→09:38)
[2022-02-08] MEDS: ENOXAPARIN 80 MG/0.8 ML SYRINGE SUBCUT SCH (08:13)
[2022-02-08] MEDS: METOPROLOL TARTRATE 50 MG TABLET PO SCH ×2 (08:14→20:09)
[2022-02-08] MEDS: FOLIC ACID 1 MG TABLET PO SCH (08:14)
[2022-02-08] MEDS: PANTOPRAZOLE 40 MG VIAL IV SCH (08:14)
[2022-02-08] MEDS ORDERED: SODIUM CHLORIDE 0.45% 1,000 ML IV SCH (08:30)
[2022-02-08] MEDS: FERRIC GLUCONATE COMPLEX 125 MG in SODIUM CHLORIDE 0.9% 100 ML IV SCH (09:38)
[2022-02-09] MEDS: DILTIAZEM 60 MG TABLET PO SCH ×4 (00:20→18:28)
[2022-02-09] MEDS: methylPREDNISolone SOD SUC 125 MG/2 ML VIAL IV SCH ×3 (00:31→18:28)
[2022-02-09] MEDS: METOCLOPRAMIDE 10 MG/2 ML VIAL IV SCH ×2 (03:07→08:14)
[2022-02-09 04:34] LABS: ABG Base Excess 3.6 MMOL/L (-2.5-2.5); ABG HCO3 27.7 MMOL/L (20-26); ABG Oxygen Saturation 98.2 % (95-100); ABG PCO2 53.9 MM HG (35-48); ABG PH 7.356 (7.35-7.45); ABG TCO2 27.6 MMOL/L (23-27)
[2022-02-09 04:59] LABS: Basophils % 0.3 % (0.0-0.8); Hematocrit 31.1 VOL% (42.0-52.0); Hemoglobin 9.4 GM/DL (14.0-18.0); Immature Granulocytes % 8.2 %; Immature Granulocytes Absolute 0.78 #; Lymphocytes # 0.3 10*3/uL (1.4-4.0); Lymphocytes % 3.4 % (21.2-54.2); Mean Corpuscular HGB Conc 30.2 GM/DL (32-36); Mean Corpuscular Volume 94.2 FL (87-102); Mean Platelet Volume 10.3 FL (9.6-12.0); Monocytes # 0.3 10*3/uL (0.11-0.8); Monocytes % 3.4 % (1.7-12.7); Neutrophils % 84.7 % (38.7-73.9); Platelet Count 182 T/CUMM (130-400); Red Cell Distribution Width 15.9 % (9.3-17.3); White Blood Count 9.5 T/CUMM (4-12)
[2022-02-09 05:20] LABS: Calcium 9.7 MG/DL (8.5-10.1); Osmolality,Calculated 342.6 MOS/KG (273-304); Phosphorous 4.5 MG/DL (2.5-4.9); Potassium 5.6 MMOL/L (3.5-5.1)
[2022-02-09] MEDS: INSULIN REGULAR 100 UNIT/ML SUBCUT SCH ×3 (05:45→18:28)
[2022-02-09 05:51] LABS: Anisocytosis 1+; Atypical Lymphocytes Few; Band Neutrophils 7 % (0-10); Lymphocytes 9 % (20-55); Metamyelocytes 1 %; Ovalocytes Few; Platelet Estimate Normal; Total Cells Counted 100
[2022-02-09] MEDS: PANTOPRAZOLE 40 MG VIAL IV SCH (08:15)
[2022-02-09] MEDS: MORPHINE 2 MG/1 ML SYRINGE IV PRN (08:15)
[2022-02-09] MEDS: FOLIC ACID 1 MG TABLET PO SCH (08:16)
[2022-02-09] MEDS: ENOXAPARIN 80 MG/0.8 ML SYRINGE SUBCUT SCH (08:16)
[2022-02-09] MEDS: METOPROLOL TARTRATE 50 MG TABLET PO SCH ×2 (08:17→20:57)
[2022-02-09] MEDS: FERRIC GLUCONATE COMPLEX 125 MG in SODIUM CHLORIDE 0.9% 100 ML IV SCH (08:21)
[2022-02-09] MEDS ORDERED: SODIUM CHLORIDE 0.45% 1,000 ML IV SCH (09:00)
[2022-02-09] MEDS: LEVOFLOXACIN INJ 750 MG/150 ML PREMIX IV SCH (10:31)
[2022-02-09 17:25] LABS: Arterial Base Excess iSTAT 6 MMOL/L (-2.5-2.5); Arterial Bicarbonate iSTAT 32.5 MMOL/L (20-26); Arterial O2 Saturation iSTAT 98 % (95-100); Arterial PCO2 iSTAT 55 MM HG (35-48); Arterial PO2 iSTAT 111 MM HG (80-95); Arterial Total CO2 iSTAT 34 MMO/L (23-27); Arterial pH iSTAT 7.381 (7.35-7.45)
[2022-02-09] MEDS: QUEtiapine 25 MG TABLET PO SCH (21:35)
[2022-02-09] MEDS: SERTRALINE 25 MG TABLET PO SCH (21:35)
[2022-02-10] MEDS: INSULIN REGULAR 100 UNIT/ML SUBCUT SCH ×4 (00:54→18:21)
[2022-02-10] MEDS: DILTIAZEM 60 MG TABLET PO SCH ×4 (02:50→18:13)
[2022-02-10] MEDS: methylPREDNISolone SOD SUC 125 MG/2 ML VIAL IV SCH ×3 (03:07→18:12)
[2022-02-10 05:32] LABS: Basophils % 0.1 % (0.0-0.8); Hematocrit 31.6 VOL% (42.0-52.0); Hemoglobin 9.5 GM/DL (14.0-18.0); Immature Granulocytes % 5.9 %; Immature Granulocytes Absolute 0.45 #; Lymphocytes # 0.2 10*3/uL (1.4-4.0); Mean Corpuscular HGB Conc 30.1 GM/DL (32-36); Mean Corpuscular Volume 92.9 FL (87-102); Mean Platelet Volume 10.1 FL (9.6-12.0); Monocytes # 0.4 10*3/uL (0.11-0.8); Monocytes % 4.6 % (1.7-12.7); Neutrophils % 86.4 % (38.7-73.9); Platelet Count 158 T/CUMM (130-400); Red Cell Distribution Width 15.8 % (9.3-17.3); White Blood Count 7.6 T/CUMM (4-12)
[2022-02-10 05:53] LABS: Calcium 10.1 MG/DL (8.5-10.1); Osmolality,Calculated 337.4 MOS/KG (273-304); Potassium 5.2 MMOL/L (3.5-5.1)
[2022-02-10 06:07] LABS: Lymphocytes 3 % (20-55); Platelet Estimate Adequate; Total Cells Counted 100
[2022-02-10 07:01] LABS: Arterial Base Excess iSTAT 6 MMOL/L (-2.5-2.5); Arterial Bicarbonate iSTAT 32.3 MMOL/L (20-26); Arterial O2 Saturation iSTAT 98 % (95-100); Arterial PCO2 iSTAT 55 MM HG (35-48); Arterial PO2 iSTAT 108 MM HG (80-95); Arterial Total CO2 iSTAT 34 MMO/L (23-27); Arterial pH iSTAT 7.375 (7.35-7.45)
[2022-02-10] MEDS: FOLIC ACID 1 MG TABLET PO SCH (10:30)
[2022-02-10] MEDS: METOPROLOL TARTRATE 25 MG TABLET PO SCH ×2 (10:30→21:04)
[2022-02-10] MEDS: PANTOPRAZOLE 40 MG VIAL IV SCH (10:34)
[2022-02-10] MEDS: FERRIC GLUCONATE COMPLEX 125 MG in SODIUM CHLORIDE 0.9% 100 ML IV SCH (10:37)
[2022-02-10 14:26] LABS: M. Tuberculosis PCR Result Negative (Negative); M. Tuberculosis PCR Source BRONCH WASH
[2022-02-10] MEDS: MORPHINE 2 MG/1 ML SYRINGE IV PRN (18:09)
[2022-02-10] MEDS: ENOXAPARIN 80 MG/0.8 ML SYRINGE SUBCUT SCH ×2 (19:34→21:04)
[2022-02-10] MEDS: QUEtiapine 25 MG TABLET PO SCH (21:04)
[2022-02-10] MEDS: SERTRALINE 25 MG TABLET PO SCH (21:04)
[2022-02-11 00:05] LABS: Calcium 9.6 MG/DL (8.5-10.1); Osmolality,Calculated 344.9 MOS/KG (273-304); Potassium 5.3 MMOL/L (3.5-5.1)
[2022-02-11] MEDS: INSULIN REGULAR 100 UNIT/ML SUBCUT SCH ×5 (00:25→23:27)
[2022-02-11] MEDS: methylPREDNISolone SOD SUC 125 MG/2 ML VIAL IV SCH ×3 (00:32→17:37)
[2022-02-11] MEDS: DILTIAZEM 60 MG TABLET PO SCH ×5 (01:40→23:26)
[2022-02-11 04:03] LABS: Arterial Base Excess iSTAT 6 MMOL/L (-2.5-2.5); Arterial Bicarbonate iSTAT 32.1 MMOL/L (20-26); Arterial O2 Saturation iSTAT 97 % (95-100); Arterial PCO2 iSTAT 51 MM HG (35-48); Arterial PO2 iSTAT 92 MM HG (80-95); Arterial Total CO2 iSTAT 34 MMO/L (23-27); Arterial pH iSTAT 7.406 (7.35-7.45)
[2022-02-11 06:00] LABS: Basophils % 0.1 % (0.0-0.8); Hematocrit 31.9 VOL% (42.0-52.0); Hemoglobin 9.6 GM/DL (14.0-18.0); Immature Granulocytes % 4.7 %; Immature Granulocytes Absolute 0.37 #; Lymphocytes # 0.2 10*3/uL (1.4-4.0); Lymphocytes % 2.6 % (21.2-54.2); Mean Corpuscular HGB Conc 30.1 GM/DL (32-36); Mean Corpuscular Volume 93.3 FL (87-102); Mean Platelet Volume 10.8 FL (9.6-12.0); Monocytes # 0.3 10*3/uL (0.11-0.8); Monocytes % 4.2 % (1.7-12.7); Neutrophils % 88.4 % (38.7-73.9); Platelet Count 176 T/CUMM (130-400); Red Blood Count 3.42 MC/CUMM (3.8-5.5); Red Cell Distribution Width 15.9 % (9.3-17.3); White Blood Count 7.9 T/CUMM (4-12)
[2022-02-11 06:21] LABS: Calcium 10.1 MG/DL (8.5-10.1); Osmolality,Calculated 344.7 MOS/KG (273-304); Potassium 4.8 MMOL/L (3.5-5.1)
[2022-02-11] MEDS: METOPROLOL TARTRATE 25 MG TABLET PO SCH ×2 (09:28→20:18)
[2022-02-11] MEDS: FOLIC ACID 1 MG TABLET PO SCH (09:29)
[2022-02-11] MEDS: FERRIC GLUCONATE COMPLEX 125 MG in SODIUM CHLORIDE 0.9% 100 ML IV SCH (09:29)
[2022-02-11] MEDS: PANTOPRAZOLE 40 MG VIAL IV SCH (09:31)
[2022-02-11] MEDS: POLYETHYLENE GLYCOL POWDER 17 GM PACK PO SCH ×3 (09:31→20:18)
[2022-02-11] MEDS: ENOXAPARIN 80 MG/0.8 ML SYRINGE SUBCUT SCH ×2 (09:56→20:18)
[2022-02-11 10:23] LABS: Lymphocytes 6 % (20-55); Platelet Estimate Adequate; Polychromasia Slight; Total Cells Counted 100
[2022-02-11] MEDS: LEVOFLOXACIN INJ 750 MG/150 ML PREMIX IV SCH (12:03)
[2022-02-11] MEDS ORDERED: DEXMEDETOMIDINE 200 MCG in SODIUM CHLORIDE 0.9% 48 ML IV PRN (13:04)
[2022-02-11] MEDS: SERTRALINE 25 MG TABLET PO SCH (20:17)
[2022-02-11] MEDS: QUEtiapine 25 MG TABLET PO SCH (20:18)
[2022-02-11] MEDS: MORPHINE 2 MG/1 ML SYRINGE IV PRN (23:31)
[2022-02-12] MEDS: methylPREDNISolone SOD SUC 125 MG/2 ML VIAL IV SCH ×3 (01:37→17:27)
[2022-02-12 04:06] LABS: Arterial Base Excess iSTAT 7 MMOL/L (-2.5-2.5); Arterial Bicarbonate iSTAT 32.7 MMOL/L (20-26); Arterial O2 Saturation iSTAT 80 % (95-100); Arterial PCO2 iSTAT 52 MM HG (35-48); Arterial PO2 iSTAT 44 MM HG (80-95); Arterial Total CO2 iSTAT 34 MMO/L (23-27); Arterial pH iSTAT 7.411 (7.35-7.45)
[2022-02-12 04:47] LABS: Basophils % 0.1 % (0.0-0.8); Hematocrit 33.1 VOL% (42.0-52.0); Hemoglobin 9.9 GM/DL (14.0-18.0); Immature Granulocytes % 2.1 %; Lymphocytes # 0.2 10*3/uL (1.4-4.0); Lymphocytes % 2.5 % (21.2-54.2); Mean Corpuscular HGB Conc 29.9 GM/DL (32-36); Mean Corpuscular Volume 95.4 FL (87-102); Mean Platelet Volume 10.9 FL (9.6-12.0); Monocytes # 0.4 10*3/uL (0.11-0.8); Monocytes % 3.8 % (1.7-12.7); Neutrophils % 91.5 % (38.7-73.9); Platelet Count 176 T/CUMM (130-400); Red Blood Count 3.47 MC/CUMM (3.8-5.5); White Blood Count 9.7 T/CUMM (4-12)
[2022-02-12 05:03] LABS: Calcium 9.9 MG/DL (8.5-10.1); Potassium 4.9 MMOL/L (3.5-5.1)
[2022-02-12 05:10] LABS: Lymphocytes 1 % (20-55); Total Cells Counted 100
[2022-02-12 05:11] LABS: Platelet Estimate Adequate
[2022-02-12] MEDS: DILTIAZEM 60 MG TABLET PO SCH ×4 (06:29→23:51)
[2022-02-12] MEDS: INSULIN REGULAR 100 UNIT/ML SUBCUT SCH ×3 (06:30→17:28)
[2022-02-12 09:11] LABS: Arterial Base Excess iSTAT 5 MMOL/L (-2.5-2.5); Arterial Bicarbonate iSTAT 29.6 MMOL/L (20-26); Arterial O2 Saturation iSTAT 95 % (95-100); Arterial PCO2 iSTAT 45 MM HG (35-48); Arterial PO2 iSTAT 74 MM HG (80-95); Arterial Total CO2 iSTAT 31 MMO/L (23-27); Arterial pH iSTAT 7.431 (7.35-7.45)
[2022-02-12] MEDS: ENOXAPARIN 80 MG/0.8 ML SYRINGE SUBCUT SCH ×2 (09:48→21:18)
[2022-02-12] MEDS: METOPROLOL TARTRATE 25 MG TABLET PO SCH ×2 (09:48→21:18)
[2022-02-12] MEDS: POLYETHYLENE GLYCOL POWDER 17 GM PACK PO SCH ×3 (09:48→21:18)
[2022-02-12] MEDS: FOLIC ACID 1 MG TABLET PO SCH (09:49)
[2022-02-12] MEDS: PANTOPRAZOLE 40 MG VIAL IV SCH (09:49)
[2022-02-12] MEDS: SALIVA SUBSTITUTE SPRAY 60 ML CAN SWISH/SPIT PRN ×2 (13:33→17:04)
[2022-02-12] MEDS: MORPHINE 2 MG/1 ML SYRINGE IV PRN (14:24)
[2022-02-12] MEDS: SERTRALINE 25 MG TABLET PO SCH (21:18)
[2022-02-12] MEDS: QUEtiapine 25 MG TABLET PO SCH (21:19)
[2022-02-13] MEDS: INSULIN REGULAR 100 UNIT/ML SUBCUT SCH ×3 (00:08→11:15)
[2022-02-13] MEDS: methylPREDNISolone SOD SUC 125 MG/2 ML VIAL IV SCH (02:16)
[2022-02-13 03:19] LABS: Arterial Base Excess iSTAT 5 MMOL/L (-2.5-2.5); Arterial Bicarbonate iSTAT 30.3 MMOL/L (20-26); Arterial O2 Saturation iSTAT 99 % (95-100); Arterial PCO2 iSTAT 48 MM HG (35-48); Arterial PO2 iSTAT 130 MM HG (80-95); Arterial Total CO2 iSTAT 32 MMO/L (23-27); Arterial pH iSTAT 7.404 (7.35-7.45)
[2022-02-13 04:15] LABS: Basophils % 0.1 % (0.0-0.8); Hematocrit 29.8 VOL% (42.0-52.0); Hemoglobin 8.9 GM/DL (14.0-18.0); Immature Granulocytes % 0.8 %; Immature Granulocytes Absolute 0.07 #; Lymphocytes # 0.3 10*3/uL (1.4-4.0); Lymphocytes % 3.1 % (21.2-54.2); Mean Corpuscular HGB Conc 29.9 GM/DL (32-36); Mean Corpuscular Volume 94.3 FL (87-102); Mean Platelet Volume 11.6 FL (9.6-12.0); Monocytes # 0.4 10*3/uL (0.11-0.8); Monocytes % 4.2 % (1.7-12.7); Neutrophils % 91.8 % (38.7-73.9); Platelet Count 174 T/CUMM (130-400); Red Blood Count 3.16 MC/CUMM (3.8-5.5); Red Cell Distribution Width 15.9 % (9.3-17.3); White Blood Count 8.5 T/CUMM (4-12)
[2022-02-13 04:18] LABS: Calcium 9.2 MG/DL (8.5-10.1); Osmolality,Calculated 338.9 MOS/KG (273-304); Potassium 4.9 MMOL/L (3.5-5.1)
[2022-02-13 04:44] LABS: Band Neutrophils 1 % (0-10); Hypochromia 1+; Lymphocytes 4 % (20-55); Total Cells Counted 100
[2022-02-13 04:45] LABS: Microcytosis 1+; Ovalocytes Slight; Platelet Estimate Adequate
[2022-02-13] MEDS: DILTIAZEM 60 MG TABLET PO SCH ×2 (05:31→11:15)
[2022-02-13] MEDS: PANTOPRAZOLE 40 MG VIAL IV SCH (07:45)
[2022-02-13] MEDS: POLYETHYLENE GLYCOL POWDER 17 GM PACK PO SCH (08:45)
[2022-02-13] MEDS: ENOXAPARIN 80 MG/0.8 ML SYRINGE SUBCUT SCH (08:45)
[2022-02-13] MEDS: METOPROLOL TARTRATE 25 MG TABLET PO SCH (08:45)
[2022-02-13] MEDS: FOLIC ACID 1 MG TABLET PO SCH (08:45)
[2022-02-13] MEDS ORDERED: LEVOFLOXACIN 500 MG TABLET PER TUBE SCH (09:00)
[2022-02-13 12:52] VITALS: BP 157/80
[2022-02-13] MEDS ORDERED: methylPREDNISolone SOD SUC 125 MG/2 ML VIAL IV SCH (14:00)
== END 2022-02-13 12:08 | DRG 163 ==
LOC: EDUNIT# → EDBD → N.ED 22:42 → N.EDINP 02-02 03:00 → SUATTDRO 02-02 03:00 → N.ICU 02-02 04:30
PROVIDERS: ADMIT Internal Medicine; ATTEND Internal Medicine